=== PATIENT | male | born 1960 | race Caucasian/White ===

== ENCOUNTER 2021-02-27 16:46 | Emergency (ER) | payer BC ==
--- NOTE | 2021-02-27 19:16 | RAD REPORT ---
EXAM DESCRIPTION: US - Extremity Venous Uni Ltd - 02/27/2021 6:38 pm CLINICAL HISTORY: PAIN COMPARISON: None. TECHNIQUE: Real-time sonographic evaluation of the left lower extremity deep venous system was perfo rmed. FINDINGS: Normal compressibility, flow augmentation, phasic flow and spontaneous flow are identified in the left lower extremity common femoral, superficial femoral, popliteal and posterior tibial vein s. No intraluminal filling defects seen. Left leg arterial findings are separately detailed. IMPRESSION: No DVT in the left lower extremity.
--- NOTE | 2021-02-27 20:27 | RAD REPORT ---
EXAM DESCRIPTION: US - Lower Extremity Artery Uni Ltd - 02/27/2021 7:13 pm CLINICAL HISTORY: PAIN COMPARISON: No comparisons TECHNIQUE: Doppler evaluation of the left leg arterial tree performed. Waveforms and velocity values were obtained along with visual inspection. FINDINGS: Triphasic waveform pattern seen in the left common femoral artery transition to a biphasic waveform in the superficial femoral artery. Long segment of the midportion femoral artery shows echo genic material within the lumen with no identifiable blood flow. Proximal to the knee the distal-most femoralartery shows re-establishment of flow. This is typical re- cannulization at the adductor amie l. Popliteal, posterior tibial and dorsalis pedis arteries show monophasic waveform pattern. 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 Normal left common femoral artery triphasic waveform pattern seen. Popliteal, posterior tibial and do rsalis pedis arteries are patent but monophasic and waveform pattern.
--- NOTE | 2021-02-27 20:39 | EDPHYS ---
Physician Documentation [facility] Name: Casper Elena Age: 61 yrs Sex: Male : 1960 Arrival Date: 02/27/2021 Time: 16:48 Bed 11 Private MD: ED Physician Horacio Castaneda HPI: 02/27 20:33 This 61 yrs old Male presents to ER via Wheelchair with complaints of Leg Pain. jr8 20:33 This is a 61-year-old male patient that presented to the emergency room with insidious jr8 onset left medial thigh pain. Patient stated that it is worse with ambulation and feels that it is achy in nature. Patient had been talking to his family member who is a nurse practitioner in [place] and stated that he should get evaluated for a clot. Patient came in for further evaluation at that time. Patient denies any other symptoms at this time.. Historical: - Allergies: 17:33 Codeine; iw - PMHx: 17:33 Myocardial infarction; cva; iw - PSHx: 17:33 heart stent; iw - Immunization history:: Client reports receiving the 2nd dose of the Covid vaccine. - Social history:: Smoking status: Patient reports the use of cigarette tobacco products, smokes one pack cigarettes per day. ROS: 20:33 Eyes: Negative for injury, pain, redness, and discharge, ENT: Negative for injury, jr8 pain, and discharge, Neck: Negative for injury, pain, and swelling, Cardiovascular: Negative for chest pain, palpitations, and edema, Respiratory: Negative for shortness of breath, cough, wheezing, and pleuritic chest pain, Abdomen/GI: Negative for abdominal pain, nausea, vomiting, diarrhea, and constipation, Back: Negative for injury and pain, Skin: Negative for injury, rash, and discoloration, Neuro: Negative for headache, weakness, numbness, tingling, and seizure. 20:33 MS/extremity: Positive for pain, of the left leg. Exam: 20:33 Constitutional: This is a well developed, well nourished patient who is awake, alert, jr8 and in no acute distress. Neck: Trachea midline, no thyromegaly or masses palpated, and no cervical lymphadenopathy. Supple, full range of motion without nuchal rigidity, or vertebral point tenderness. No Meningismus. Cardiovascular: Regular rate and rhythm with a normal S1 and S2. No gallops, murmurs, or rubs. Normal PMI, no JVD. No pulse deficits. Respiratory: Lungs have equal breath sounds bilaterally, clear to auscultation and percussion. No rales, rhonchi or wheezes noted. No increased work of breathing, no retractions or nasal flaring. Abdomen/GI: Soft, non-tender, with normal bowel sounds. No distension or tympany. No guarding or rebound. No evidence of tenderness throughout. Skin: Warm, dry with normal turgor. Normal color with no rashes, no lesions, and no evidence of cellulitis. Neuro: Awake and alert, GCS 15, oriented to person, place, time, and situation. Cranial nerves II-XII grossly intact. Motor strength 5/5 in all extremities. Sensory grossly intact. Cerebellar exam normal. Normal gait. 20:33 Musculoskeletal/extremity: ROM: intact in all extremities, Pulses: noted to be 1+ in the left dorsalis pedis artery, Perfusion: the patient is pink, warm, Perfusion: the extremity is pink, warm, Calf tenderness, is absent, Sensation intact. Vital Signs: 17:32 BP 169 / 98; Pulse 76; Resp 16; Temp 97.5; Pulse Ox 97% on R/A; Weight 81.65 kg; Height iw 5 ft. 10 in. (177.80 cm); Pain 7/10; 20:55 BP 173 / 95; Pulse 71; Resp 16 S; Temp 97.9(O); Pulse Ox 97% on R/A; bb 17:32 Body Mass Index 25.83 (81.65 kg, 177.80 cm) iw MDM: 19:34 Patient medically screened. jr8 20:33 Data reviewed: vital signs, nurses notes, radiologic studies, ultrasound. Data jr8 interpreted: Pulse oximetry: on room air is 97 %. Interpretation: normal. Counseling: I had a detailed discussion with the patient and/or guardian regarding: the historical points, exam findings, and any diagnostic results supporting the discharge/admit diagnosis, radiology results, the need for outpatient follow up, a raise driller, to return to the emergency department if symptoms worsen or persist or if there are any questions or concerns that arise at home. ED course: Discussed with patient that he has atherosclerotic changes to his left femoral artery consistent to where his pain is. Patient does have collateral flow with monophasic flow down to the pedal region. Discussed with him that he needs to follow-up with cardiology has this needs to be further explored much sooner than later as this could potentially end open and occlusive emergent process. Patient understands well follow-up with cardiology in the next 1 to 2 days. Patient knows to come back if you are to worsen at any point time. Signs and symptoms of acute arterial occlusion given to patient as well to watch for.. 02/27 17:44 Order name: Extremity Venous Unilateral Ltd; Complete Time: 19:34 iw 02/27 18:42 Order name: LE Artery Uni Ltd; Complete Time: 20:31 thuy Administered Medications: No medications were administered Disposition: 02/28 04:40 Co-signature as Attending Physician, Horacio Castaneda MD I agree with the assessment and [place] healthcare plan of care. Disposition Summary: 02/27/21 20:39 Discharge Ordered Location: Home jr8 Problem: new jr8 Symptoms: have improved jr8 Condition: Stable jr8 Diagnosis - Atherosclerosis of [place] arteries of extremities with intermittent claudication, jr8 left leg Followup: jr8 - With: Brandon Perry MD - When: 1 - 2 days - Reason: Recheck today's complaints, Continuance of care, Re-evaluation by your physician Discharge Instructions: - Discharge Summary Sheet jr8 - Intermittent Claudication jr8 - Peripheral Vascular Disease jr8 - Atherosclerosis jr8 Forms: - Medication Reconciliation Form jr8 - Thank You Letter jr8 - Antibiotic Education jr8 - Prescription Opioid Use jr8 Signatures: Dispatcher [employer] EDHoracio Guerrero MD MD cha Williams, Irene, RN RN iw Elier Miramontes PA PA jr8 Corrections: (The following items were deleted from the chart) 02/27 19:21 18:41 Lower Extremity Artery Uni Ltd ordered. EDWA DEMI
--- NOTE | 2021-02-27 20:39 | ER ---
Nurse's Notes [facility] Name: Casper Elena Age: 61 yrs Sex: Male : 1960 Arrival Date: 02/27/2021 Time: 16:48 Bed 11 Private MD: Diagnosis: Atherosclerosis of [place] arteries of extremities with intermittent claudication, left leg Presentation: 02/27 17:32 Chief complaint: Patient states: pain to left thigh and inside left thigh started iw yesterday. Coronavirus screen: At this time, the client does not indicate any symptoms associated with coronavirus-19. Coronavirus screen:. Ebola Screen: Patient negative for fever greater than or equal to 101.5 degrees Fahrenheit, and additional compatible Ebola Virus Disease symptoms Patient denies exposure to infectious person. Patient denies travel to an Ebola-affected area in the 21 days before illness onset. No symptoms or risks identified at this time. Initial Sepsis Screen: Does the patient meet any 2 criteria? No. Patient's initial sepsis screen is negative. Does the patient have a suspected source of infection? No. Patient's initial sepsis screen is negative. Risk Assessment: Do you want to hurt yourself or someone else? Patient reports no desire to harm self or others. Onset of symptoms was February 27, 2021. 17:32 Method Of Arrival: Wheelchair iw 17:32 Acuity: ANDREW 4 iw Historical: - Allergies: 17:33 Codeine; iw - PMHx: 17:33 Myocardial infarction; cva; iw - PSHx: 17:33 heart stent; iw - Immunization history:: Client reports receiving the 2nd dose of the Covid vaccine. - Social history:: Smoking status: Patient reports the use of cigarette tobacco products, smokes one pack cigarettes per day. Screenin:54 Abuse screen: Denies threats or abuse. Nutritional screening: No deficits noted. bb Tuberculosis screening: No symptoms or risk factors identified. Fall Risk None identified. Assessment: 20:54 Reassessment: Patient is alert, oriented x 3, equal unlabored respirations, skin bb warm/dry/pink. pt seen by this RN at discharge pt verbalized understanding of and agrees to plan of care discharge instructions given pt ambulated with steady gait to exit. Vital Signs: 17:32 BP 169 / 98; Pulse 76; Resp 16; Temp 97.5; Pulse Ox 97% on R/A; Weight 81.65 kg; Height iw 5 ft. 10 in. (177.80 cm); Pain 7/10; 20:55 BP 173 / 95; Pulse 71; Resp 16 S; Temp 97.9(O); Pulse Ox 97% on R/A; bb 17:32 Body Mass Index 25.83 (81.65 kg, 177.80 cm) ED Course: 16:48 Patient arrived in ED. ds1 17:33 Triage completed. iw 17:34 Arm band placed on. iw 18:38 US Extremity Venous Unilateral Ltd In Process Unspecified. EDMS 18:42 Horacio Castaneda MD is Attending Physician. [facility] 19:13 US LE Artery Uni Ltd In Process Unspecified. EDMS 19:34 Elier Miramontes PA is PHCP. jr8 20:38 Brandon Perry MD is Referral Physician. jr8 20:54 Patient has correct armband on for positive identification. bb 20:54 No provider procedures requiring assistance completed. Patient did not have IV access bb during this emergency room visit. Administered Medications: No medications were administered Outcome: 20:39 Discharge ordered by . jr8 20:54 Discharged to home ambulatory. bb 20:54 Condition: stable 20:54 Discharge instructions given to patient, Instructed on discharge instructions, follow up and referral plans. Demonstrated understanding of instructions, follow-up care. 20:56 Patient left the ED. bb Signatures: Dispatcher [employer] EDHoracio Guerrero MD MD cha Sanford, Demi ds1 Teresa Mason RN RN bb Williams, Irene, RN RN Elier Miramontes PA PA jr8
[2021-02-27 21:01] VITALS: O2SAT 97
[2021-02-27 21:02] VITALS: BP 173/95; TEMP 97.9
== END 2021-02-27 20:56 | disposition home or self-care (01) ==
LOC: ER 16:46
DX: I70.212 Atherosclerosis of native arteries of extremities with intermittent claudication, left leg (principal); Z88.6 Allergy status to analgesic agent; F17.210 Nicotine dependence, cigarettes, uncomplicated
CPT/HCPCS: 93926; 93971; 99283

== ENCOUNTER 2021-03-09 08:26 | Day surgery (SDC) | payer BC ==
--- NOTE | 2021-03-05 16:19 | RAD REPORT ---
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 Lungs: No evidence of edema or pneumonia. Pleural: No significant pleural effusions or pneumothorax. Cardiac: The heart size is within normal limits. Bones: No acute fractures. Other: IMPRESSION: No acute cardiopulmonary disease.
[2021-03-05 17:16] LABS: Absolute Lymphocytes (CBC) 2.7 K/uL (0.7-4.9); Hematocrit 45.4 % (39.6-49.0); Lymphocytes % 29.4 % (15.3-44.8); MPV 8.5 fL (7.6-11.3); RBC Red Blood Cell Count 4.98 M/uL (4.33-5.43)
[2021-03-05 17:21] LABS: Protime INR 0.85
[2021-03-05 17:28] LABS: BUN Blood Urea Nitrogen 23 mg/dL (7-18); Bicarbonate 25 mmol/L (21-32); Glucose Level 103 mg/dL (74-106); Potassium 3.8 mmol/L (3.5-5.1); Sodium Level 140 mmol/L (136-145)
[2021-03-09] MEDS ORDERED: NA CHLORIDE 0.9% 500 ML ONE (08:35)
[2021-03-09] MEDS ORDERED: LIDOCAINE 1% 20 ML MDV ONE ×2 (09:17→10:35)
[2021-03-09] MEDS ORDERED: FENTANYL CITR 100 MCG/2 ML ONE (09:18)
[2021-03-09] MEDS ORDERED: HEPARIN 5000 UNIT/ML 1 ML VIAL ONE (09:18)
[2021-03-09] MEDS ORDERED: HEPA 1000U/500MLS 1,000 UNIT/500 ML BAG IV ONE ×2 (09:18→09:40)
[2021-03-09] MEDS ORDERED: MIDAZOLAM HCL 2 MG/2 ML INJ ONE ×3 (09:18→09:56)
[2021-03-09] MEDS ORDERED: ATROPINE SULF 1 MG/10 ML SYR IV ONE (09:19)
[2021-03-09 09:25] VITALS: TEMP 97
[2021-03-09] MEDS ORDERED: FLUMAZENIL 0.1 MG/ML (5 mL VIAL) IV ONE (09:57)
[2021-03-09 12:03] VITALS: BP 143/98; O2SAT 95
--- NOTE | 2021-03-09 12:14 | OP ---
Date of Procedure: 03/09/2021 Surgeon: Brandon Perry MD Piece Goods Packer: Hanna Aguila. Procedure: Abdominal angiogram with runoff. Indication: Peripheral arterial disease. Procedure In Detail: Mr. Elena is 61 with classic claudication symptoms, abnormal arterial Doppler, brought to the clinical laboratory medical director today as an outpatient, prepped and draped in routine sterile fashion. He w as given Versed and fentanyl for sedation. A 6-Yemeni sheath introduced in the right common femoral artery successfully using the Seldinger technique and 10 cc of Xylocaine. A pigtail catheter was adv anced above the renals. Abdominal angiogram with runoff was done. He had a normal renals, normal ao rta, normal iliacs, external and common. He had diffuse disease in the internal iliacs bilaterally. He had a completely occluded SFA on the left side from the ostium. It reconstituted above the knee. The right SFA was normal. There was diffuse disease [id number] at all 3 vessels bilaterally. There were no complications. Blood loss was 5 mL. The patient tolerated the procedure well. Angio- Seal was used to close the case. Total conscious sedation was 30 minutes. Impression: Severe peripheral arterial disease. I would refer him to Dr. Drew in [place] for possible femoral-popliteal surgery on the left versus p ossible intervention. I will give him a CD for himself and I will send a CD to Dr. Drew. He will remain in the hospital for 2 hours of bedrest after the procedure and he will go home after that. I will make an arrangement for followup. DAGO/ANTOINETTE Voice ID: [id number] Report ID: [id number]
== END 2021-03-09 12:08 | disposition home or self-care (01) ==
LOC: CCL 08:26
PROC: B40DYZZ Plain Radiography of Aorta and Bilateral Lower Extremity Arteries using Other Contrast (ICD-10-PCS; principal; 2021-03-09)
DX: I70.212 Atherosclerosis of native arteries of extremities with intermittent claudication, left leg (principal); I70.92 Chronic total occlusion of artery of the extremities; I25.10 Atherosclerotic heart disease of native coronary artery without angina pectoris; I10 Essential (primary) hypertension; E78.2 Mixed hyperlipidemia; F17.210 Nicotine dependence, cigarettes, uncomplicated; Z88.6 Allergy status to analgesic agent; Z20.822 Contact with and (suspected) exposure to COVID-19; Z82.49 Family history of ischemic heart disease and other diseases of the circulatory system
CPT/HCPCS: 85025; 80048; 36415; 85610; 85730; 71046; 36200; 75630; U0003; J2250 ×3; J3010; J7040; J1644 ×2

== ENCOUNTER 2022-07-30 07:14 | Emergency (ER) | payer BC ==
--- OUTSIDE RECORDS SUMMARY | 2022-07-30 07:19 | XMS REPORT | Continuity of Care Document ---
:1960 Author Organization [facility] t Address [address] [place] [address] Care Team Providers Name Role Phone AKIN PELAYO Attending Clinician Unavailable AKIN PELAYO Attending Clinician Unavailable Akin Pelayo MD Attending Clinician Irving RN, Justus Mckay Attending Clinician Unavailable AKIN PELAYO Admitting Clinician Unavailable Payers Payer Name Policy Type Policy Number Effective Date Expiration Date S ource PPO/EPO - BCBS [id number] CVCP-BCBS [id number] BCBS PPO POS EPO [id number] 2020 00:00:00 CHOICE Problems Condition Condition Condition Status Onset Resolution Last Treating Co mments Source Name Details Category Date Date Treatment Clinician Date PAD PAD Disease Active [facility] (periphera (periphera 03-26 Co llege l artery l artery 00:00: of disease) disease) 00 Medici n e Carotid Carotid Disease Active [facility] stenosis, stenosis, 03-26 Ebonie ege asymptomat asymptomat 00:00: of ic, ic, 00 Medicin bilateral bilateral e Allergies, Adverse Reactions, Alerts Allergy Allergy Status Severity Reaction(s) Onset Inactive Treating Comm ents Source Name Type Date Date Clinician Codeine Propensi Active [facility] ty to 03-24 College adverse 00:00: of reaction 00 Medicin s to e drug Codeine Drug Active [facility] CODEINE Allergy Active High Hives [facility] Social History Social Habit Start Date Stop Date Quantity Comments Source Exposure to Not sure [facility] Pardeep taylor SARS-CoV-2 (event) of Med icine History of tobacco Cigarette Smoker [facility] use of Medicine History SDGA [facility] Alcohol Comment Medical C enter History SDOH [facility] Alcohol Std Drinks Medica l Center History SDGA [facility] Alcohol Binge Medical [address] [facility] Alcohol intake 2021-04-13 2021-04-[address] [facility] 00:[facility] 00:[facility]:00 non-drinker Medical Cente r (finding) Tobacco use and 2021-04-09 2021-04-[address] [facility] exposure 00:00:00 00:00:00 non-user Medical Center History SDOH 2021-04-09 2021-04-[address] [facility] Alcohol Frequency 00:00:00 00:00:00 [facility] Sex Assigned At [address] [facility] kes 00:00:00 00:00:00 [facility] Smoking Status Start Date Stop Date Source Occasional tobacco smoker 2021-09-22 00:00:00 [facility] Smokes tobacco daily 2021-04-09 00:00:00 [facility] Never smoked tobacco [facility] Medications Ordered Filled Start Stop Current Ordering Indication Dosage Frequency Signature Comments Components Source Medication Medication Date Date Medication? Clinician (SIG) Name Name Aspirin 81 2021-02 Yes Take by [facility] CAPS 1-09 mouth. College 13:54: of 41 Medicin e Ibuprofen 2021-02 Yes Take by [facility] 200 MG CAPS 1-09 mouth. Pardeep taylor 13:54: of 41 Medicin e Aspirin 81 Yes Take by [facility] CAPS 7-27 mouth. College 13:31: of 51 Medicin e Ibuprofen Yes Take by [facility] 200 MG CAPS 7-27 mouth. Pardeep taylor 13:31: of 51 Medicin e Aspirin 81 Yes Take by [facility] CAPS 3-02 mouth. College 14:22: of 17 Medicin e Ibuprofen Yes Take by [facility] 200 MG CAPS 3-02 mouth. Pardeep taylor 14:22: of 17 Medicin e ibuprofen 2021-0 Yes [facility] 2[facility]11 [facility]. [facility] 13:[facility]: [address] aspirin 2-0 Yes Take [facility] 2-11 [facility]. [facility] 81 mg Cap 13:53: [address] ibuprofen 2021-0 Yes [facility] by [facility] Cap 2-11 mouth. [facility] 13:53: [address] aspirin 2021-0 Yes Take by [facility] 2-11 mouth. [facility] 81 mg Cap 13:53: [address] ibuprofen 2021-0 Yes Take by [facility] 200 mg Cap 2-11 mouth. [facility] 13:53: [address] aspirin 2021-0 Yes Take by [facility] 2-11 mouth. [facility] 81 mg Cap 13:53: [address] ibuprofen 2021-0 Yes [facility] by [facility] 200 mg Cap 2-11 mouth. [facility] 13:53: [address] aspirin 2021-0 Yes Take by [facility] 2-11 mouth. [facility] 81 mg Cap 13:53: [address] ibuprofen 2021-0 Yes Take by [facility] 200 mg Cap 2-11 mouth. [facility] 13:53: [address] aspirin 2-0 Yes Take by [facility] 2-11 mouth. [facility] 81 mg Cap 13:53: [address] ibuprofen 2021-0 Yes [facility] by [facility] 200 mg Cap 2-11 mouth. [facility] 13:53: [address] aspirin 2021-0 Yes Take by [facility] 2-11 mouth. [facility] 81 mg Cap 13:53: [address] clopidogrel 2022-0 3- No 75mg Take 75 mg [facility] (PLAVIX) 75 04-09 by mouth. Co llege MG Tablet 00:00: 05:59 of 00 :00 Medicin e clopidogrel 2022-0 2022- No 75mg Take 75 mg [facility] (PLAVIX) 75 04-09 by mouth. Co llege MG Tablet 00:00: 05:59 of 00 :00 Medicin e clopidogrel 2022-0 2022- No 75mg Take 75 mg [facility] (PLAVIX) 75 2-11 02-12 by mouth. Co llege MG Tablet 00:00: 05:59 of 00 :00 Medicin e clopidogreL 2022- No 75mg QD Take [address] [facility] (PLAVIX) 75 2-11 02-11 tablet (75 [facility] mg tablet 00:00: 23:59 mg total) Me dical 00 :00 by mouth Center daily. clopidogreL 2022- No 75mg QD Take [address] [facility] ([facility]AVIX) 75 2-11 02-11 tablet (75 [facility] mg tablet 00:00: 23:59 mg total) Me dical 00 :00 by mouth Center daily. clopidogreL 2022- No 75mg QD Take [address] [facility] (PLAVIX) 75 2-11 -11 tablet (75 [facility] mg tablet 00:00: 23:59 mg total) Me dical 00 :00 by mouth Center daily. clopidogreL 2022- No 75mg QD Take [address] [facility] ([facility]AVIX) 75 2-11 -11 tablet (75 [facility] mg tablet 00:00: 23:59 mg total) Me dical 00 :00 by mouth Center daily. clopidogreL 2022- No 75mg QD Take [address] [facility] (PLAVIX) 75 2-11 -11 tablet (75 [facility] mg tablet 00:00: 23:59 mg total) Me dical 00 :00 by mouth Center daily. clopidogreL 2022- No 75mg QD Take [address] [facility] (PLAVIX) 75 2-11 02-11 tablet (75 [facility] mg tablet 00:00: 23:59 mg total) Me dical 00 :00 by mouth Center daily. Aspirin 81 Yes Take by [facility] CAPS 03-24 mouth. College 15:03: Medicin e Ibuprofen Yes Take by [facility] ([facility]) 200 03-24 mouth. Colleg e MG CAPS 15:03: Medicin e Vital Signs Vital Name Observation Time Observation Value Comments Source Heart rate 2022-01-05 19:53:00 84 /min [facility] Respiratory rate 2022-01-05 19:53:00 16 /min [facility] Body height 2022-01-05 19:53:00 177.8 cm [facility] C [facility] Body weight 2022-01-05 19:53:00 79.379 kg [facility] BMI 2022-01-05 19:53:00 25.11 kg/m2 [facility] Systolic blood 2022-01-05 19:53:00 136 mm[Hg] [facility] pressure Medicine Diastolic blood 2022-01-05 19:53:00 71 mm[Hg] [facility] pressure Medicine Systolic blood 2021-09-22 18:31:00 141 mm[Hg] [facility] pressure Medicine Diastolic blood 2021-09-22 18:31:00 82 mm[Hg] [facility] pressure Medicine Heart rate 2021-09-22 18:31:00 62 /min [facility] Body height 2021-09-22 18:31:00 177.8 cm [facility] Body weight 2021-09-22 18:31:00 77.384 kg [facility] BMI 2021-09-22 18:31:00 24.48 kg/m2 [facility] Systolic blood 2021-04-28 20:24:00 146 mm[Hg] [facility] pressure Medicine Diastolic blood 2021-04-28 20:24:00 93 mm[Hg] [facility] pressure Medicine Heart rate 2021-04-28 20:24:00 66 /min [facility] WEIGHT 2021-04-09 07:21:00 81.92 kg HEIGHT 2021-04-09 07:21:00 177.8 cm WEIGHT 2021-04-09 07:21:00 81.92 kg HEIGHT 2021-04-09 07:21:00 177.8 cm WEIGHT 2021-04-06 11:49:00 83.008 kg HEIGHT 2021-04-06 11:49:00 177.8 cm WEIGHT 2021-04-06 11:49:00 83.008 kg HEIGHT 2021-04-06 11:49:00 177.8 cm Systolic blood 2021-03-24 21:02:00 167 mm[Hg] [facility] pressure Medicine Diastolic blood 2021-03-24 21:02:00 95 mm[Hg] [facility] Medicine Heart rate 2021-03-24 21:02:00 72 /min [facility] Body height 2021-03-24 21:02:00 177.8 cm [facility] Body weight 2021-03-24 21:02:00 81.647 kg [facility] BMI 2021-03-24 21:02:00 25.83 kg/m2 [facility] Systolic blood 2021-04-09 13:00:00 135 mm[Hg] [facility] Diastolic blood 2021-04-09 13:00:00 78 mm[Hg] [facility] Heart rate 2021-04-09 13:00:00 80 /min [facility] Respiratory rate 2021-04-09 13:00:00 16 /min [facility] Oxygen saturation in 2021-04-09 12:14:00 97 /min [facility] Arterial blood by Medical Ce nter Pulse oximetry Body temperature 2021-04-09 07:21:00 35.61 Ambar [facility] Body height 2021-04-09 07:21:00 177.8 cm [facility] Body weight 2021-04-09 07:21:00 81.92 kg [facility] BMI 2021-04-09 07:21:00 25.91 kg/m2 [facility] Procedures Procedure Date / Time Performed Performing Clinician Sour e VASCULAR OBL PROCEDURE 2021-12-21 08:00:00 [facility] CBC W/PLT COUNT & AUTO 2021-04-09 11:52:00 Brandon Mcintyre [facility] CBC W/PLT COUNT & AUTO 2021-04-09 11:52:00 Brandon Mcintyre [facility] PERIPHERAL ANGIOS / 2021-04-09 08:22:00 Akin Pelayo [facility] AORTOGRAM [facility] ECG 12-LEAD 2021-04-09 08:19:51 Akin Pelayo [facility] ECG 12-LEAD 2021-04-09 08:19:51 Unknown, [facility] ABORH, MANUAL 2021-04-09 08:12:00 Essie Vieira [facility] TYPE AND SCREEN, 2021-04-09 07:58:00 Rupal Mcfadden [facility] es AUTOMATED [facility] CARDIAC CATH REPORT - 2021-04-09 00:00:00 Provider, [place] [facility] SCAN Scanning [facility] CBC W/PLT COUNT & AUTO 2021-04-06 12:29:00 Akin Pelayo [facility] DIFFERENTIAL [facility] BASIC METABOLIC PANEL 2021-04-06 12:29:00 Akin Pelayo [facility] CBC W/PLT COUNT & AUTO 2021-04-06 12:29:00 [facility] SARS-COV2/RT-PCR ([facility] & 2021-04-06 12:08:00 Akin Pelayo [facility] REF LABS) [facility] Plan of Care Planned Activity Planned Date Details Comments Source Future Scheduled 2022-10-[address] [facility] Test 00:00:00 (Season Ended) [code = [facility] INFLUENZA VACCINE (Season Ended)] Future Scheduled 2022-10-[address] [facility] Test 00:00:00 (Season Ended) [code = [facility] INFLUENZA VACCINE (Season Ended)] Future Scheduled 2022-02-[address] [facility] Test 00:00:00 (12+) [code = [facility] DEPRESSION SCREENING (12+)] Future Scheduled 2022-02-[address] [facility] Test 00:00:00 (12+) [code = Medical Center DEPRESSION SCREENING (12+)] Future Scheduled 2022-02-[address] [facility] Test 00:00:00 (12+) [code = [facility] DEPRESSION SCREENING (12+)] Future Scheduled 2022-01-10 Screening for malignant [facility] Test 08:16:26 neoplasm of colon of Medicin e (procedure) [code = 938571519] Future Scheduled 2022-01-10 COVID-19 Vaccine (#1) [facility] Test 08:16:26 [code = COVID-19 of Medicine Vaccine (#1)] Future Scheduled 2022-01-10 Pneumococcal Combined [employer] Test 08:16:26 (1 - PCV) [code = of Medicin e Pneumococcal Combined (1 - PCV)] Future Scheduled 2022-01-10 TETANUS SHOT (ADULT) [facility] Test 08:16:26 [code = TETANUS SHOT of Medi cine (ADULT)] Future Scheduled 2022-01-10 BMI FOLLOW UP PLAN [facility] Test 08:16:26 [code = BMI FOLLOW UP of Med icine PLAN] Future Scheduled 2022-01-10 Hepatitis C screening [facility] Test 08:16:26 (procedure) [code = of Medic ine [id number]] Future Scheduled 2022-01-10 Human immunodeficiency B [facility] Test 08:16:26 virus screening of Medicine (procedure) [code = 564876473] Future Scheduled 2022-01-10 ZOSTER VACCINE (1 of 2) [facility] Test 08:16:26 [code = ZOSTER VACCINE of Me dicine (1 of 2)] Future Scheduled 2022-01-10 FLU VACCINE > 6 MONTHS B [facility] Test 08:16:26 [code = FLU VACCINE > 6 of M edicine MONTHS] Future Scheduled 2022-01-05 US ARTERIAL LEG LEFT 1 Occurrences [facility] College Test 14:04:06 [code = 03981] starting of Medicine 01/05/2022 until 01/05/2023 Future Scheduled 2021-10-28 INFLUENZA VACCINE (#1) [facility] Test 00:00:00 [code = INFLUENZA Medical Ce nter VACCINE (#1)] Future Scheduled 2021-10-28 INFLUENZA VACCINE (#1) [facility] Test 00:00:00 [code = INFLUENZA Medical Ce nter VACCINE (#1)] Future Scheduled 2021-10-28 INFLUENZA VACCINE (#1) [facility] Test 00:00:00 [code = INFLUENZA Medical Ce nter VACCINE (#1)] Future Scheduled 2021-10-28 INFLUENZA VACCINE (#1) [facility] Test 00:00:00 [code = INFLUENZA Medical Ce nter VACCINE (#1)] Future Scheduled 2021-09-23 Human immunodeficiency B [facility] Test 10:29:55 virus screening of Medicine (procedure) [code = 692085336] Future Scheduled 2021-09-23 ZOSTER VACCINE (1 of 2) [facility] Test 10:29:55 [code = ZOSTER VACCINE of Me dicine (1 of 2)] Future Scheduled 2021-09-23 FLU VACCINE > 6 MONTHS [employer] Test 10:29:55 [code = FLU VACCINE > 6 of M edicine MONTHS] Future Scheduled 2021-09-23 Screening for malignant [employer] Test 10:29:55 neoplasm of colon of Medicin e (procedure) [code = 381694641] Future Scheduled 2021-09-23 COVID-19 Vaccine (#1) [employer] Test 10:29:55 [code = COVID-19 of Medicine Vaccine (#1)] Future Scheduled 2021-09-23 Pneumococcal Combined [employer] Test 10:29:55 (1 - PCV) [code = of Medicin e Pneumococcal Combined (1 - PCV)] Future Scheduled 2021-09-23 TETANUS SHOT (ADULT) [facility] [employer] Test 10:29:55 [code = TETANUS SHOT of Medi cine (ADULT)] Future Scheduled 2021-09-23 Hepatitis C screening [employer] Test 10:29:55 (procedure) [code = of Medic ine 262908245] Future Scheduled 2021-09-22 US ARTERIAL LEG LEFT 1 Occurrences [employer] Test 13:43:42 [code = 46575] starting of Medicine 09/22/2021 until 09/22/2022 Future Scheduled 2021-04-29 Screening for malignant [facility] Test 10:01:14 neoplasm of colon of Medicin e (procedure) [code = 085415625] Future Scheduled 2021-04-29 COVID-19 Vaccine (1) [employer] Test 10:01:14 [code = COVID-19 of Medicine Vaccine (1)] Future Scheduled 2021-04-29 TETANUS SHOT (ADULT) [employer] Test 10:01:14 [code = TETANUS SHOT of Medi cine (ADULT)] Future Scheduled 2021-04-29 BMI FOLLOW UP PLAN [facility] [employer] Test 10:01:14 [code = BMI FOLLOW UP of Med icine PLAN] Future Scheduled 2021-04-29 Hepatitis C screening [employer] Test 10:01:14 (procedure) [code = of Medic ine 579315016] Future Scheduled 2021-04-29 Human immunodeficiency [facility] [employer] Test 10:01:14 virus screening of Medicine (procedure) [code = 347682088] Future Scheduled 2021-04-29 ZOSTER VACCINE (1 of 2) [facility] Test 10:01:14 [code = ZOSTER VACCINE of Me dicine (1 of 2)] Future Scheduled 2021-04-29 FLU VACCINE > 6 MONTHS [facility] Test 10:01:14 [code = FLU VACCINE > 6 of M edicine MONTHS] Future Scheduled 2021-04-28 US ARTERIAL LEG LEFT 1 Occurrences [employer] Test 14:41:32 [code = 98207] starting of Medicine 04/28/2021 until 04/28/2022 Future Scheduled 2021-03-26 Screening for malignant [facility] Test 13:25:12 neoplasm of colon of Medicin e (procedure) [code = 200380773] Future Scheduled 2021-03-26 COVID-19 Vaccine (1) [facility] Test 13:25:12 [code = COVID-19 of Medicine Vaccine (1)] Future Scheduled 2021-03-26 TETANUS SHOT (ADULT) [facility] Test 13:25:12 [code = TETANUS SHOT of Medi cine (ADULT)] Future Scheduled 2021-03-26 BMI FOLLOW UP PLAN [facility] Test 13:25:12 [code = BMI FOLLOW UP of Med icine PLAN] Future Scheduled 2021-03-26 Hepatitis C screening [facility] Test 13:25:12 (procedure) [code = of Medic ine 079493867] Future Scheduled 2021-03-26 Human immunodeficiency [facility] Test 13:25:12 virus screening of Medicine (procedure) [code = 491071792] Future Scheduled 2021-03-26 ZOSTER VACCINE (1 of 2) [facility] Test 13:25:12 [code = ZOSTER VACCINE of Me dicine (1 of 2)] Future Scheduled 2021-03-26 FLU VACCINE > 6 MONTHS [facility] Test 13:25:12 [code = FLU VACCINE > 6 of M edicine MONTHS] Future Scheduled 2021-03-24 US ARTERIAL LEG LEFT 1 Occurrences [employer] Test 15:22:07 [code = 88843] starting of Medicine 03/24/2021 until 03/24/2022 Future Scheduled 2021-03-24 US CAROTID [code = 1 Occurrences [facility] Test 15:22:07 92193] starting of Medicine 03/24/2021 until 03/24/2022 Future Scheduled 2021-02-[address] [facility] Test 00:00:00 (12+) [code = Medical Center DEPRESSION SCREENING (12+)] Future Scheduled 2021-02-[address] [facility] Test 00:00:00 (12+) [code = Medical Center DEPRESSION SCREENING (12+)] Future Scheduled 2021-02-[address] [facility] Test 00:00:00 (12+) [code = Medical Center DEPRESSION SCREENING (12+)] Future Scheduled 2010-01-28 SHINGLES VACCINES ([address] [facility] Test 00:00:00 2) [code = SHINGLES Medical Center VACCINES (1 of 2)] Future Scheduled 2010-01-28 SHINGLES VACCINES ([address] [facility] Test 00:00:00 2) [code = SHINGLES Medical Center VACCINES (1 of 2)] Future Scheduled 2010-01-28 SHINGLES VACCINES ([address] [facility] Test 00:00:00 2) [code = SHINGLES Medical Center VACCINES (1 of 2)] Future Scheduled 2010-01-28 SHINGLES VACCINES ([address] [facility] Test 00:00:00 2) [code = SHINGLES Medical Center VACCINES (1 of 2)] Future Scheduled 2010-01-28 SHINGLES VACCINES ([address] [facility] Test 00:00:00 2) [code = SHINGLES Medical Center VACCINES (1 of 2)] Future Scheduled 2010-01-28 SHINGLES VACCINES ([address] [facility] Test 00:00:00 2) [code = SHINGLES Medical Center VACCINES (1 of 2)] Future Scheduled 1995-01-28 Lipid panel (procedure) [facility] Test 00:00:00 [code = 44149206] Medical Ce nter Future Scheduled 1995-01-28 Lipid panel (procedure) [facility] Test 00:00:00 [code = 99829232] Medical Ce nter Future Scheduled 1995-01-28 Lipid panel (procedure) [facility] Test 00:00:00 [code = 89194681] Medical Ce nter Future Scheduled 1995-01-28 Lipid panel (procedure) [facility] Test 00:00:00 [code = 07496490] Medical Ce nter Future Scheduled 1995-01-28 Lipid panel (procedure) [facility] Test 00:00:00 [code = 40699058] Medical Ce nter Future Scheduled 1995-01-28 Lipid panel (procedure) [facility] Test 00:00:00 [code = 39070109] Medical Ce nter Future Scheduled 1979-01-28 DTAP/TDAP/TD VACCINES [facility] Test 00:00:00 (1 - Tdap) [code = Medical C enter DTAP/TDAP/TD VACCINES (1 - Tdap)] Future Scheduled 1979-01-28 DTAP/TDAP/TD VACCINES [facility] Test 00:00:00 (1 - Tdap) [code = Medical C enter DTAP/TDAP/TD VACCINES (1 - Tdap)] Future Scheduled 1979-01-28 DTAP/TDAP/TD VACCINES [facility] Test 00:00:00 (1 - Tdap) [code = Medical C enter DTAP/TDAP/TD VACCINES (1 - Tdap)] Future Scheduled 1979-01-28 DTAP/TDAP/TD VACCINES [facility] Test 00:00:00 (1 - Tdap) [code = Medical C enter DTAP/TDAP/TD VACCINES (1 - Tdap)] Future Scheduled 1979-01-28 DTAP/TDAP/TD VACCINES [facility] Test 00:00:00 (1 - Tdap) [code = Medical C enter DTAP/TDAP/TD VACCINES (1 - Tdap)] Future Scheduled 1979-01-28 DTAP/TDAP/TD VACCINES [facility] Test 00:00:00 (1 - Tdap) [code = Medical C enter DTAP/TDAP/TD VACCINES (1 - Tdap)] Future Scheduled 1978-01-28 HEPATITIS C SCREENING [facility] Test 00:00:00 [code = HEPATITIS C Medical Center SCREENING] Future Scheduled 1978-01-28 HEPATITIS C [facility]CRE[facility]ING [facility] Test 00:00:00 [code = HEPATITIS C Medical Center SCREENING] Future Scheduled 1978-01-28 HEPATITIS C SCREENING [facility] Test 00:00:00 [code = HEPATITIS C Medical Center SCREENING] Future Scheduled 1978-01-28 HEPATITIS C SCREENING [facility] Test 00:00:00 [code = HEPATITIS C Medical Center SCREENING] Future Scheduled 1978-01-28 HEPATITIS C [facility]CREENING [facility] Test 00:00:00 [code = HEPATITIS C Medical Center SCREENING] Future Scheduled 1978-01-28 HEPATITIS C [facility]CRE[facility]ING [facility] Test 00:00:00 [code = HEPATITIS C Medical Center SCREENING] Future Scheduled [address] [facility] Test 00:00:00 Counseling and Medical Cente r Screening (12+) [code = Tobacco Cessation Counseling and Screening (12+)] Future Scheduled [address] [facility] Test 00:00:00 Counseling and Medical Cente r Screening (12+) [code = Tobacco Cessation Counseling and Screening (12+)] Future Scheduled [address] [facility] Test 00:00:00 Counseling and Medical Cente r Screening (12+) [code = Tobacco Cessation Counseling and Screening (12+)] Future Scheduled 1966-01-[address] [facility] Test 00:00:00 0-64 YRS (1 - PCV) Medical C enter [code = PNEUMOCOCCAL VACCINE 0-64 YRS (1 - PCV)] Future Scheduled 1966-01-[address] [facility] Test 00:00:00 0-64 YRS (1 - PCV) Medical C enter [code = PNEUMOCOCCAL VACCINE 0-64 YRS (1 - PCV)] Future Scheduled 1966-01-[address] [facility] Test 00:00:00 0-64 YRS (1 - PCV) Medical C enter [code = PNEUMOCOCCAL VACCINE 0-64 YRS (1 - PCV)] Future Scheduled 1966-01-[address] [facility] Test 00:00:00 0-64 YRS (1 - PCV) Medical C enter [code = PNEUMOCOCCAL VACCINE 0-64 YRS (1 - PCV)] Future Scheduled 1966-01-[address] [facility] Test 00:00:00 0-64 YRS (1 - PCV) Medical C enter [code = PNEUMOCOCCAL VACCINE 0-64 YRS (1 - PCV)] Future Scheduled 1966-01-[address] [facility] Test 00:00:00 0-64 YRS (1 - PCV) Medical C enter [code = PNEUMOCOCCAL VACCINE 0-64 YRS (1 - PCV)] Future Scheduled 1960 COVID-19 VACCINE (#1) [facility] Test 00:00:00 [code = COVID-[address] VACCINE (#1)] Future Scheduled 1960 COVID-19 VACCINE (#1) [facility] Test 00:00:00 [code = COVID-[address] VACCINE (#1)] Future Scheduled 1960 COVID-19 VACCINE (#1) [facility] Test 00:00:00 [code = COVID-[address] VACCINE (#1)] Future Scheduled 1960 COVID-19 VACCINE (#1) [facility] Test 00:00:00 [code = COVID-[address] VACCINE (#1)] Future Scheduled 1960 COVID-19 VACCINE (#1) [facility] Test 00:00:00 [code = COVID-[address] VACCINE (#1)] Future Scheduled 1960 COVID-19 VACCINE (#1) [facility] Test 00:00:00 [code = COVID-[address] VACCINE (#1)] Future Scheduled 1960 Screening for malignant [facility] Test 00:00:00 neoplasm of colon Medical Ce nter (procedure) [code = 949553240] Future Scheduled 1960 Screening for malignant [facility] Test 00:00:00 neoplasm of colon Medical Ce nter (procedure) [code = 636709040] Future Scheduled 1960 Screening for malignant [facility] Test 00:00:00 neoplasm of colon Medical Ce nter (procedure) [code = 651433374] Future Scheduled 1960 Sigmoidoscopy [code = [facility] Sigmoidoscopy] [facility] Future Scheduled 1960 CT Colonography (combo) [facility] Test 00:00:00 [code = CT Colonography [facility] (combo)] Future Scheduled 1960 Screening for malignant [facility] Test 00:00:00 neoplasm of colon Medical Ce nter (procedure) [code = 884884647] Future Scheduled 1960 Screening for malignant [facility] Test 00:00:00 neoplasm of colon Medical Ce nter (procedure) [code = 055728099] Future Scheduled 1960 Screening for malignant [facility] Test 00:00:00 neoplasm of colon [facility] (procedure) [code = 316762276] Future Scheduled 1960 Screening for malignant [facility] 00:00:00 neoplasm of colon Medical Ce [facility]ter (procedure) [code = 684608055] Future Scheduled 1960 Sigmoidoscopy [facility]code = [facility]] Medical Cent[facility] Future Scheduled 1960 CT Colonography (combo) [facility] 00:00:00 [code = CT Colonography [facility] (combo)] Future Scheduled 1960 Screening for malignant [facility] 00:00:00 neoplasm of colon Medical Ce [facility]ter (procedure) [code = 626495299] Future Scheduled 1960 Screening for malignant [facility] 00:00:00 neoplasm of colon Medical Ce [facility] (procedure) [code = 548120101] Future Scheduled 1960 Screening for malignant [facility] 00:00:00 neoplasm of colon Medical Ce [facility]ter (procedure) [code = 410574452] Future Scheduled 1960 Screening for malignant [facility] 00:00:00 neoplasm of colon Medical Ce [facility]ter (procedure) [code = 407316188] Future Scheduled 1960 Sigmoidoscopy [facility]code = [facility] S[facility]oscopy] Medical Cente r Future Scheduled 1960 CT Colonography (combo) [facility] 00:00:00 [code = CT Colonography [facility] (combo)] Future Scheduled 1960 Screening for malignant [facility] 00:00:00 neoplasm of colon Medical Ce [facility]ter (procedure) [code = 127619238] Future Scheduled 1960 Screening for malignant [facility] 00:00:00 neoplasm of colon Medical Ce [facility]ter (procedure) [code = 959641697] Future Scheduled 1960 Screening for malignant [facility] 00:00:00 neoplasm of colon Medical Ce nter (procedure) [code = 253077001] Future Scheduled 1960 Screening for malignant [facility] 00:00:00 neoplasm of colon Medical Ce [facility]ter (procedure) [code = 754637350] Future Scheduled 1960 Sigmoidoscopy [code = [facility] 00:[facility] S[facility]oidoscopy] Medical Cente r Future Scheduled 1960 CT Colonography (combo) [facility] 00:00:00 [code = CT [facility] ([facility])] Future Scheduled 1960 Screening for malignant [facility] 00:00:00 neoplasm of colon Medical Ce nter (procedure) [code = 216457592] Future Scheduled 1960 Screening for malignant [facility] 00:00:00 neoplasm of colon Medical Ce nter (procedure) [code = 067800430] Future Scheduled 1960 Screening for malignant [facility] 00:00:00 neoplasm of colon Medical Ce [facility]ter (procedure) [code = 381159889] Future Scheduled 1960 Screening for malignant [facility] 00:00:00 neoplasm of colon Medical Ce nter (procedure) [code = 091081135] Future Scheduled 1960 Sigmoidoscopy [facility]code = [facility] 00:[facility] S[facility]oidoscopy] Medical Nolbertoe r Future Scheduled 1960 CT Colonography (combo) [facility] 00:00:00 [code = CT [facility] ([facility])] Future Scheduled 1960 Screening for malignant [facility] 00:00:00 neoplasm of colon Medical Ce [facility]ter (procedure) [code = 042856922] Future Scheduled 1960 CT Colonography (combo) [facility] 00:00:00 [code = CT [facility] ([facility])] Future Scheduled 1960 Screening for malignant [facility] 00:00:00 neoplasm of colon Medical Ce [facility]ter (procedure) [code = 646997192] Future Scheduled 1960 Screening for malignant [facility] 00:00:00 neoplasm of colon Medical Ce nter (procedure) [code = 142343878] Future Scheduled 1960 Screening for malignant [facility] 00:00:00 neoplasm of colon Medical Ce nter (procedure) [code = 301893311] Future Scheduled 1960 Screening for malignant [facility] 00:00:00 neoplasm of colon Medical Ce nter (procedure) [code = 831886449] Future Scheduled 1960 Sigmoidoscopy [facility]code = [facility] S[facility]oscopy] Medical Cente r Encounters Start End Encounter Admission Attending Care Care Encounter Source Date/Time Date/Time Type Type Clinicians Facility Department ID 2022-01-05 2022-01-05 Outpatient [facility] [id number] [facility] 12:33:21 15:38:55 [facility] 2022-01-05 2022-01-05 Office RICHIE PELAYO [id number] [facility] 13:52:22 14:52:27 Visit JAYER AMBULATOR 350.1.13.21 College Y 0.2.7.2.686 of [id number] [facility] kay 825 e 2021-12-21 2021-12-21 Outpatient [facility] [id number] [facility] 08:12:05 11:41:36 [facility] 2021-12-21 2021-12-21 Outpatient SABINA [facility] [id number] [facility] 07:52:04 10:11:00 [facility]AYER [employer] 2021-09-22 2021-10-14 Outpatient [facility] [id number] [facility] 10:35:11 19:34:48 [facility] 2021-09-22 2021-09-23 Office SABINA [facility] [id number] [facility] 10:42:05 20:44:23 Visit JAYER AMBULATOR 350.1.13.21 College Y 0.2.7.2.686 of [id number] [facility] kay 825 e 2021-04-28 2021-04-28 Office SABINA [facility] [id number] [facility] 12:38:00 16:07:55 Visit JAYER AMBULATOR 350.1.13.21 College Y 0.2.7.2.686 of [id number] [facility] kay 825 e 2021-04-28 2021-04-28 Outpatient [facility] [id number] [facility] 12:37:18 15:13:05 [facility] 2021-04-28 2021-04-28 Outpatient [facility] [id number] [facility] 12:37:43 14:46:20 [facility] 2021-04-09 2021-04-09 Outpatient [facility] [id number] [facility] 00:00:00 23:59:00 [facility] 2021-04-09 2021-04-09 Outpatient MELISSA PELAYO [facility] Surgery [id number] [facility] 07:10:00 13:23:00 [facility] 2021-04-09 2021-04-09 [facility] [id number] 07:10:00 13:23:00 Encounter [facility] 2021-04-09 2021-04-09 [facility] [id number] 10:06:00 12:43:00 [facility] 2021-04-09 2021-04-09 Orders [facility] [id number] 00:00:00 00:00:00 [facility] 2021-04-06 2021-04-06 Office Akin Brown [facility] [id number] 11:30:00 11:45:00 Visit [facility] 2021-04-06 2021-04-06 Outpatient [facility] [id number] [facility] 11:28:56 11:28:56 2021-03-24 2021-03-30 Office RICHIE PELAYO [id number] [facility] 14:10:08 06:52:29 Visit [facility] AMBULATOR 350.1.13.21 College Y 0.2.7.2.686 of [id number] [facility] 825 e Results Test Description Test Time Test Comments Results Result Comments Source CBC with platelet count + automated diff 2021-04-09 12:08:23 Test Item Value Reference Range Interpretation Comme nts WBC (test code = 6690-2) 11.9 See_Comment H [A utomated message] The system which generated this result transmitted ref erence range: 3.5 - 10.5 K/L. T he reference range was not u sed to interpret this result as normal/abnormal. RBC (test code = 789-8) 4.35 See_Comment L [Au tomated message] The system which generated this result transmitted ref erence range: 4.63 - 6.08 M/ L. The reference range was not u sed to interpret this result as normal/abnormal. MCHC (test code = 786-4) 33.9 See_Comment L [A utomated message] The system which generated this result transmitted ref erence range: 32.3 - 36.5 GM/ DL. The reference range was not u sed to interpret this result as normal/abnormal. Hematocrit (test code = 39.8 % 40.1-51.0 L 4544-3) MCV (test code = 787-2) 91.5 fL 79.0-92.2 MCH (test code = 785-6) 31.0 pg 25.7-32.2 RDW (test code = 788-0) 12.1 % 11.6-14.4 Platelets (test code = 777-3) 216 See_Comment [Automated message] The system which generated this result transmitted ref erence range: 150 - 450 K/CU MM. The reference range was not u sed to interpret this result as normal/abnormal. MPV (test code = 79597-5) 10.0 fL 9.4-12.4 nRBC (test code = 413) 0 See_Comment [Aut omated message] The system which generated this result transmitted ref erence range: 0 - 0 /100 WBC. The reference range was not used to interpret this result as amy l/abnormal. % Neutros (test code = 429) 72 % % Lymphs (test code = 430) 18 % % Monos (test code = 431) 8 % % Eos (test code = 432) 2 % % Baso (test code = 437) 1 % # Neutros (test code = 670) 8.49 See_Comment H [Automated message] The system which generated this result transmitted ref erence range: 1.78 - 5.38 K/ L. The reference range was not u sed to interpret this result as normal/abnormal. # Lymphs (test code = 414) 2.14 See_Comment [Automated message] The system which generated this result transmitted ref erence range: 1.32 - 3.57 K/ L. The reference range was not u sed to interpret this result as normal/abnormal. # Monos (test code = 415) 0.90 See_Comment H [ Automated message] The system which generated this result transmitted ref erence range: 0.30 - 0.82 K/ L. The reference range was not u sed to interpret this result as normal/abnormal. # Eos (test code = 416) 0.19 See_Comment [Au tomated message] The system which generated this result transmitted ref erence range: 0.04 - 0.54 K/ L. The reference range was not u sed to interpret this result as normal/abnormal. # Baso (test code = 417) 0.08 See_Comment [A utomated message] The system which generated this result transmitted ref erence range: 0.01 - 0.08 K/ L. The reference range was not u sed to interpret this result as normal/abnormal. Immature Granulocytes-Relative 1 % 0-1 (test code = 2801) Lab Interpretation (test code Abnormal = 03391-9) [facility] with platelet count + automated [id number] 12:08:23 Test Item Value Reference Range Interpretation Comments WBC (test code = 6690-2) 11.9 See_Comment H [A utomated message] The system [employer] generated this result transmitted ref erence range: 3.5 - 10 .5 K/L. The refe rence range was not u sed to interpret this result as normal/abnor mal. RBC (test code = 789-8) 4.35 See_Comment L [Au tomated message] The system [employer] generated this result transmitted ref erence range: 4.63 - 6 .08 M/L. The refe rence range was not u sed to interpret this result as normal/abnor mal. MCHC (test code = 786-4) 33.9 See_Comment L [A utomated message] The system [employer] generated this result transmitted ref erence range: 32.3 - 3 6.5 GM/DL. The refe rence range was not u sed to interpret this result as normal/abnor mal. Hematocrit (test code = 39.8 % 40.1-51.0 L 4544-3) MCV (test code = 787-2) 91.5 fL 79.0-92.2 MCH (test code = 785-6) 31.0 pg 25.7-32.2 RDW (test code = 788-0) 12.1 % 11.6-14.4 Platelets (test code = 216 See_Comment [Aut omated message] 777-3) The system [employer] generated this result transmitted ref erence range: 150 - 45 0 K/CU MM. The referen ce range was not u sed to interpret this result as normal/abnor mal. MPV (test code = 10.0 fL 9.4-12.4 85935-2) nRBC (test code = 413) 0 See_Comment [Aut omated message] The system [employer] generated this result transmitted ref erence range: 0 - 0 /1 00 WBC. The refere nce range was not u sed to interpret this result as normal/abnor mal. % Neutros (test code = 72 % 429) % Lymphs (test code = 18 % 430) % Monos (test code = 8 % 431) % Eos (test code = 432) 2 % % Baso (test code = 437) 1 % # Neutros (test code = 8.49 See_Comment H [Aut omated message] 670) The system [employer] generated this result transmitted ref erence range: 1.78 - 5 .38 K/L. The refe rence range was not u sed to interpret this result as normal/abnor mal. # Lymphs (test code = 2.14 See_Comment [Auto mated message] 414) The system [employer] generated this result transmitted ref erence range: 1.32 - 3 .57 K/L. The refe rence range was not u sed to interpret this result as normal/abnor mal. # Monos (test code = 0.90 See_Comment H [Autom ated message] 415) The system [employer] generated this result transmitted ref erence range: 0.30 - 0 .82 K/L. The refe rence range was not u sed to interpret this result as normal/abnor mal. # Eos (test code = 416) 0.19 See_Comment [Au tomated message] The system [employer] generated this result transmitted ref erence range: 0.04 - 0 .54 K/L. The refe rence range was not u sed to interpret this result as normal/abnor mal. # Baso (test code = 417) 0.08 See_Comment [A utomated message] The system [employer] generated this result transmitted ref erence range: 0.01 - 0 .08 K/L. The refe rence range was not u sed to interpret this result as normal/abnor mal. Immature 1 % 0-1 Granulocytes-Relative (test code = 2801) Lab Interpretation (test Abnormal code = 39639-3) [facility] with platelet count + automated [id number] 12:08:23 Test Item Value Reference Range Interpretation Comments WBC (test code = 6690-2) 11.9 See_Comment H [A utomated message] The system [employer] generated this result transmitted ref erence range: 3.5 - 10 .5 K/L. The refe rence range was not u sed to interpret this result as normal/abnor mal. RBC (test code = 789-8) 4.35 See_Comment L [Au tomated message] The system [employer] generated this result transmitted ref erence range: 4.63 - 6 .08 M/L. The refe rence range was not u sed to interpret this result as normal/abnor mal. MCHC (test code = 786-4) 33.9 See_Comment L [A utomated message] The system [employer] generated this result transmitted ref erence range: 32.3 - 3 6.5 GM/DL. The refe rence range was not u sed to interpret this result as normal/abnor mal. Hematocrit (test code = 39.8 % 40.1-51.0 L 4544-3) MCV (test code = 787-2) 91.5 fL 79.0-92.2 MCH (test code = 785-6) 31.0 pg 25.7-32.2 RDW (test code = 788-0) 12.1 % 11.6-14.4 Platelets (test code = 216 See_Comment [Aut omated message] 497-3) The system [employer] generated this result transmitted ref erence range: 150 - 45 0 K/CU MM. The referen ce range was not u sed to interpret this result as normal/abnor mal. MPV (test code = 10.0 fL 9.4-12.4 93340-6) nRBC (test code = 413) 0 See_Comment [Aut omated message] The system [employer] generated this result transmitted ref erence range: 0 - 0 /1 00 WBC. The refere nce range was not u sed to interpret this result as normal/abnor mal. % Neutros (test code = 72 % 429) % Lymphs (test code = 18 % 430) % Monos (test code = 8 % 431) % Eos (test code = 432) 2 % % Baso (test code = 437) 1 % # Neutros (test code = 8.49 See_Comment H [Aut omated message] 670) The system [employer] generated this result transmitted ref erence range: 1.78 - 5 .38 K/L. The refe rence range was not u sed to interpret this result as normal/abnor mal. # Lymphs (test code = 2.14 See_Comment [Auto mated message] 414) The system [employer] generated this result transmitted ref erence range: 1.32 - 3 .57 K/L. The refe rence range was not u sed to interpret this result as normal/abnor mal. # Monos (test code = 0.90 See_Comment H [Autom ated message] 415) The system [employer] generated this result transmitted ref erence range: 0.30 - 0 .82 K/L. The refe rence range was not u sed to interpret this result as normal/abnor mal. # Eos (test code = 416) 0.19 See_Comment [Au tomated message] The system [employer] generated this result transmitted ref erence range: 0.04 - 0 .54 K/L. The refe rence range was not u sed to interpret this result as normal/abnor mal. # Baso (test code = 417) 0.08 See_Comment [A utomated message] The system [employer] generated this result transmitted ref erence range: 0.01 - 0 .08 K/L. The refe rence range was not u sed to interpret this result as normal/abnor mal. Immature 1 % 0-1 Granulocytes-Relative (test code = 2801) Lab Interpretation (test Abnormal code = 95907-7) [facility] with platelet count + automated [id number] 12:08:23 Test Item Value Reference Range Interpretation Comments WBC (test code = 6690-2) 11.9 See_Comment H [A utomated message] The system [employer] generated this result transmitted ref erence range: 3.5 - 10 .5 K/L. The refe rence range was not u sed to interpret this result as normal/abnor mal. RBC (test code = 789-8) 4.35 See_Comment L [Au tomated message] The system [employer] generated this result transmitted ref erence range: 4.63 - 6 .08 M/L. The refe rence range was not u sed to interpret this result as normal/abnor mal. MCHC (test code = 786-4) 33.9 See_Comment L [A utomated message] The system [employer] generated this result transmitted ref erence range: 32.3 - 3 6.5 GM/DL. The refe rence range was not u sed to interpret this result as normal/abnor mal. Hematocrit (test code = 39.8 % 40.1-51.0 L 4544-3) MCV (test code = 787-2) 91.5 fL 79.0-92.2 MCH (test code = 785-6) 31.0 pg 25.7-32.2 RDW (test code = 788-0) 12.1 % 11.6-14.4 Platelets (test code = 216 See_Comment [Aut omated message] 777-3) The system [employer] generated this result transmitted ref erence range: 150 - 45 0 K/CU MM. The referen ce range was not u sed to interpret this result as normal/abnor mal. MPV (test code = 10.0 fL 9.4-12.4 95487-6) nRBC (test code = 413) 0 See_Comment [Aut omated message] The system [employer] generated this result transmitted ref erence range: 0 - 0 /1 00 WBC. The refere nce range was not u sed to interpret this result as normal/abnor mal. % Neutros (test code = 72 % 429) % Lymphs (test code = 18 % 430) % Monos (test code = 8 % 431) % Eos (test code = 432) 2 % % Baso (test code = 437) 1 % # Neutros (test code = 8.49 See_Comment H [Aut omated message] 670) The system [employer] generated this result transmitted ref erence range: 1.78 - 5 .38 K/L. The refe rence range was not u sed to interpret this result as normal/abnor mal. # Lymphs (test code = 2.14 See_Comment [Auto mated message] 414) The system [employer] generated this result transmitted ref erence range: 1.32 - 3 .57 K/L. The refe rence range was not u sed to interpret this result as normal/abnor mal. # Monos (test code = 0.90 See_Comment H [Autom ated message] 415) The system [employer] generated this result transmitted ref erence range: 0.30 - 0 .82 K/L. The refe rence range was not u sed to interpret this result as normal/abnor mal. # Eos (test code = 416) 0.19 See_Comment [Au tomated message] The system [employer] generated this result transmitted ref erence range: 0.04 - 0 .54 K/L. The refe rence range was not u sed to interpret this result as normal/abnor mal. # Baso (test code = 417) 0.08 See_Comment [A utomated message] The system [employer] generated this result transmitted ref erence range: 0.01 - 0 .08 K/L. The refe rence range was not u sed to interpret this result as normal/abnor mal. Immature 1 % 0-1 Granulocytes-Relative (test code = 2801) Lab Interpretation (test Abnormal code = 94058-4) [facility] W/PLT COUNT & AUTO [id number] 12:08:23 Test Item Value Reference Range Interpretation Comments WHITE BLOOD CELL COUNT (BEAKER) 11.9 K/ L 3.5-10.5 H (test code = 775) RED BLOOD CELL COUNT (BEAKER) 4.35 M/ L 4.63-6.08 L (test code = 761) HEMOGLOBIN (BEAKER) (test code = 13.5 GM/DL 13.7-17.5 L 410) HEMATOCRIT (BEAKER) (test code = 39.8 % 40.1-51.0 L 411) MEAN CORPUSCULAR VOLUME (BEAKER) 91.5 fL 79.0-92.2 (test code = 753) MEAN CORPUSCULAR HEMOGLOBIN 31.0 pg 25.7-32.2 (BEAKER) (test code = 751) MEAN CORPUSCULAR HEMOGLOBIN CONC 33.9 GM/DL 32.3-36.5 (BEAKER) (test code = 752) RED CELL DISTRIBUTION WIDTH 12.1 % 11.6-14.4 (BEAKER) (test code = 412) PLATELET COUNT (BEAKER) (test 216 K/CU MM 150-450 code = 756) MEAN PLATELET VOLUME (BEAKER) 10.0 fL 9.4-12.4 (test code = 754) NUCLEATED RED BLOOD CELLS 0 /100 WBC 0-0 (BEAKER) (test code = 413) NEUTROPHILS RELATIVE PERCENT 72 % (BEAKER) (test code = 429) LYMPHOCYTES RELATIVE PERCENT 18 % (BEAKER) (test code = 430) MONOCYTES RELATIVE PERCENT 8 % (BEAKER) (test code = 431) EOSINOPHILS RELATIVE PERCENT 2 % (BEAKER) (test code = 432) BASOPHILS RELATIVE PERCENT 1 % (BEAKER) (test code = 437) NEUTROPHILS ABSOLUTE COUNT 8.49 K/ L 1.78-5.38 H (BEAKER) (test code = 670) LYMPHOCYTES ABSOLUTE COUNT 2.14 K/ L 1.32-3.57 (BEAKER) (test code = 414) MONOCYTES ABSOLUTE COUNT (BEAKER) 0.90 K/ L 0.30-0.82 H (test code = 415) EOSINOPHILS ABSOLUTE COUNT 0.19 K/ L 0.04-0.54 (BEAKER) (test code = 416) BASOPHILS ABSOLUTE COUNT (BEAKER) 0.08 K/ L 0.01-0.08 (test code = 417) IMMATURE GRANULOCYTES-RELATIVE 1 % 0-1 PERCENT (BEAKER) (test code = 2801) Type and screen, [id number] 08:57:00 Test Item Value Reference Range Interpretation Comments ABO/RH AUTOMATED (BEAKER) (test AB POSITIVE code = 2260) Ab Scrn (test code = 890-4) NEGATIVE [facility] screen, [id number] 08:57:00 Test Item Value Reference Range Interpretation Comments ABO/RH AUTOMATED (BEAKER) (test AB POSITIVE code = 2260) Ab Scrn (test code = 890-4) NEGATIVE [facility] and screen, [id number] 08:57:00 Test Item Value Reference Range Interpretation Comments ABO/RH AUTOMATED (BEAKER) (test AB POSITIVE code = 2260) Ab Scrn (test code = 890-4) NEGATIVE [facility] and screen, [id number] 08:57:00 Test Item Value Reference Range Interpretation Comments ABO/RH AUTOMATED (BEAKER) (test AB POSITIVE code = 2260) Ab Scrn (test code = 890-4) NEGATIVE [facility], [id number] 08:40:00 Test Item Value Reference Range Interpretation Comments ABO Grouping (test code = 2588) AB Rh Factor (test code = 2589) POS [facility], [id number] 08:40:00 Test Item Value Reference Range Interpretation Comments ABO Grouping (test code = 2588) AB Rh Factor (test code = 2589) POS [facility], [id number] 08:40:00 Test Item Value Reference Range Interpretation Comments ABO Grouping (test code = 2588) AB Rh Factor (test code = 2589) POS [facility], [id number] 08:40:00 Test Item Value Reference Range Interpretation Comments ABO Grouping (test code = 2588) AB Rh Factor (test code = 2589) [facility])2021-04-06 21:11:35 Test Item Value Reference Range Interpretation Comments SARS-COV2/RT-PCR (test Negative Negative code = 13950-6) WENDY (test code = WENDY) Negative result for this test determines that SARS-CoV-2 RNA was not present in the specimen above the Limit of Detection (LOD). However, Negative results do not preclude SARS-CoV-2 infection and should not be used as the sole basis for treatment or patient management decisions. Negative results must be combined with clinical observations, patient history, and epidemiological information. A false negative result may occur if a specimen is improperly collected, transported, or handled. A false negative result should be considered if patient's recent exposures or clinical presentation indicate that COVID-19 (SARS-CoV-2) is likely and diagnostic tests for other causes of illness are negative. Re-testing should be considered in cases of suspected false negatives. The limit of detection for this assay is 100 copies/mL. This SARS-CoV-2 test is a real-time RT_PCR test intended for the qualitative detection of nucleic acid from SARS-CoV-2 in a nasopharyngeal swab specimen collected from individuals suspected of COVID-19 by their healthcare provider. This test has not been Food and Drug Administration (FDA) cleared or approved. This is a modified version of an approved Emergency Use Authorization (EUA) and is in the process of review by the FDA. Once authorized by the FDA, the issued EUA will be effective until the declaration that circumstances exist justifying the authorization of the emergency use of in vitro diagnostic tests for detection and/or diagnosis of COVID-19 is terminated under Section 564(b)(2) of the Act or the EUA is revoked under Section 564(g) of the Act. Testing was performed using the [employer] SARS-CoV-2 assay. Fact Sheet for Healthcare Providers:https://www.lauren shaver/sky/RT SARS-CoV-2 HCP Fact Sheet 51-699877.pdf Fact Sheet for Healthcare Patients:https://www.mo martin/sky/RT SARS-CoV-2 Patient Fact Sheet EN [id number].pdf Lab Interpretation Normal (test code = 63863-2) [facility]2021-04-06 21:11:35 Test Item Value Reference Range Interpretation Comments SARS-COV2/RT-PCR (test Negative Negative code = 53560-6) WENDY (test code = WENDY) Negative result for this test determines that SARS-CoV-2 RNA was not present in the specimen above the Limit of Detection (LOD). However, Negative results do not preclude SARS-CoV-2 infection and should not be used as the sole basis for treatment or patient management decisions. Negative results must be combined with clinical observations, patient history, and epidemiological information. A false negative result may occur if a specimen is improperly collected, transported, or handled. A false negative result should be considered if patient's recent exposures or clinical presentation indicate that COVID-19 (SARS-CoV-2) is likely and diagnostic tests for other causes of illness are negative. Re-testing should be considered in cases of suspected false negatives. The limit of detection for this assay is 100 copies/mL. This SARS-CoV-2 test is a real-time RT_PCR test intended for the qualitative detection of nucleic acid from SARS-CoV-2 in a nasopharyngeal swab specimen collected from individuals suspected of COVID-19 by their healthcare provider. This test has not been Food and Drug Administration (FDA) cleared or approved. This is a modified version of an approved Emergency Use Authorization (EUA) and is in the process of review by the FDA. Once authorized by the FDA, the issued EUA will be effective until the declaration that circumstances exist justifying the authorization of the emergency use of in vitro diagnostic tests for detection and/or diagnosis of COVID-19 is terminated under Section 564(b)(2) of the Act or the EUA is revoked under Section 564(g) of the Act. Testing was performed using the [employer] SARS-CoV-2 assay. Fact Sheet for Healthcare Providers:https://www.lauren shaver/sky/RT SARS-CoV-2 HCP Fact Sheet 51-553312.pdf Fact Sheet for Healthcare Patients:https://www.mo rowan.roque/sky/RT SARS-CoV-2 Patient Fact Sheet EN 51-509790M0.pdf Lab Interpretation Normal (test code = 07489-1) [facility]2021-04-06 21:11:35 Test Item Value Reference Range Interpretation Comments SARS-COV2/RT-PCR (test Negative Negative code = 90110-2) WENDY (test code = WENDY) Negative result for this test determines that SARS-CoV-2 RNA was not present in the specimen above the Limit of Detection (LOD). However, Negative results do not preclude SARS-CoV-2 infection and should not be used as the sole basis for treatment or patient management decisions. Negative results must be combined with clinical observations, patient history, and epidemiological information. A false negative result may occur if a specimen is improperly collected, transported, or handled. A false negative result should be considered if patient's recent exposures or clinical presentation indicate that COVID-19 (SARS-CoV-2) is likely and diagnostic tests for other causes of illness are negative. Re-testing should be considered in cases of suspected false negatives. The limit of detection for this assay is 100 copies/mL. This SARS-CoV-2 test is a real-time RT_PCR test intended for the qualitative detection of nucleic acid from SARS-CoV-2 in a nasopharyngeal swab specimen collected from individuals suspected of COVID-19 by their healthcare provider. This test has not been Food and Drug Administration (FDA) cleared or approved. This is a modified version of an approved Emergency Use Authorization (EUA) and is in the process of review by the FDA. Once authorized by the FDA, the issued EUA will be effective until the declaration that circumstances exist justifying the authorization of the emergency use of in vitro diagnostic tests for detection and/or diagnosis of COVID-19 is terminated under Section 564(b)(2) of the Act or the EUA is revoked under Section 564(g) of the Act. Testing was performed using the [employer] SARS-CoV-2 assay. Fact Sheet for Healthcare Providers:https://www.lauren shaver/sky/RT SARS-CoV-2 HCP Fact Sheet 51-167831.pdf Fact Sheet for Healthcare Patients:https://www.mo rowan.roque/sky/RT SARS-CoV-2 Patient Fact Sheet EN 51-110289W1.pdf Lab Interpretation Normal (test code = 39105-0) [facility])2021-04-06 21:11:35 Test Item Value Reference Range Interpretation Comments SARS-COV2/RT-PCR (test Negative Negative code = 21517-1) WENDY (test code = WENDY) Negative result for this test determines that SARS-CoV-2 RNA was not present in the specimen above the Limit of Detection (LOD). However, Negative results do not preclude SARS-CoV-2 infection and should not be used as the sole basis for treatment or patient management decisions. Negative results must be combined with clinical observations, patient history, and epidemiological information. A false negative result may occur if a specimen is improperly collected, transported, or handled. A false negative result should be considered if patient's recent exposures or clinical presentation indicate that COVID-19 (SARS-CoV-2) is likely and diagnostic tests for other causes of illness are negative. Re-testing should be considered in cases of suspected false negatives. The limit of detection for this assay is 100 copies/mL. This SARS-CoV-2 test is a real-time RT_PCR test intended for the qualitative detection of nucleic acid from SARS-CoV-2 in a nasopharyngeal swab specimen collected from individuals suspected of COVID-19 by their healthcare provider. This test has not been Food and Drug Administration (FDA) cleared or approved. This is a modified version of an approved Emergency Use Authorization (EUA) and is in the process of review by the FDA. Once authorized by the FDA, the issued EUA will be effective until the declaration that circumstances exist justifying the authorization of the emergency use of in vitro diagnostic tests for detection and/or diagnosis of COVID-19 is terminated under Section 564(b)(2) of the Act or the EUA is revoked under Section 564(g) of the Act. Testing was performed using the [employer] SARS-CoV-2 assay. Fact Sheet for Healthcare Providers:https://www.lauren shaver/sky/RT SARS-CoV-2 HCP Fact Sheet 51-519851.pdf Fact Sheet for Healthcare Patients:https://www.mo martin/sky/RT SARS-CoV-2 Patient Fact Sheet EN 51-558189X8.pdf Lab Interpretation Normal (test code = 97425-2) [facility])2021-04-06 21:11:35 Test Item Value Reference Range Interpretation Comments SARS-COV2/RT-PCR (test code = Negative Negative [id number]) Negative result for this test determines that SARS-CoV-2 RNA was not present in the specimen above the Limit of Detection (LOD). However, Negative results do not preclude SARS-CoV-2 infection and should not be used as the sole basis for treatment or patient management decisions. Negative results must be combined with clinical observations, patient history, and epidemiological information. A false negative result may occur if a specimen is improperly collected, transported, or handled. A false negative result should be considered if patient's recent exposures or clinical presentation indicate that COVID-19 (SARS-CoV-2) is likely and diagnostic tests for other causes of illness are negative. Re-testing should be considered in cases of suspected false negatives.The limit of detection for this assay is 100 copies/mL.This SARS-CoV-2 test is a real-time RT_PCR test intended for the qualitative detection of nucleic acid from SARS-CoV-2 in a nasopharyngeal swab specimen collected from individuals suspected of COVID-19 by their healthcare provider.This test has not been Food and Drug Administration (FDA) cleared or approved. This is a modified version of an approved Emergency Use Authorization (EUA) and is in the process of review by the FDA. Once authorized by the FDA, the issued EUA will be effective until the declaration that circumstances exist justifying the authorization of the emergency use of in vitro diagnostic tests for detection and/or diagnosis of COVID-19 is terminated under Section 564(b)(2) of the Act or the EUA is revoked under Section 564(g) of the Act.Testing was performed using [employer] SARS-CoV-2 assay.Fact Sheet for Healthcare Providers:https://www.Sporthold.roque/sky/RT SARS-CoV-2 HCP Fact Sheet 51- 142016.pdfFact Sheet for Healthcare Patients:https://www.Sporthold.roque/sky/RT SARS-CoV-2 Patient Fact Sheet EN [id number].pdfBASI METABOLIC [id number] 13:13:54 Test Item Value Reference Range Interpretation Comments SODIUM (BEAKER) 141 meq/L 136-145 (test code = 381) POTASSIUM (BEAKER) 4.1 meq/L 3.5-5.1 (test code = 379) CHLORIDE (BEAKER) 106 meq/L 98-107 (test code = 382) CO2 (BEAKER) (test 27 meq/L 22-29 code = 355) BLOOD UREA NITROGEN 19 mg/dL 7-21 (BEAKER) (test code = 354) CREATININE (BEAKER) 1.04 mg/dL 0.57-1.25 (test code = 358) GLUCOSE RANDOM 91 mg/dL 70-105 (BEAKER) (test code = 652) CALCIUM (BEAKER) 9.1 mg/dL 8.4-10.2 (test code = 697) EGFR (BEAKER) (test 73 mL/min/1.73 ESTIMA RUTHANN GFR IS code = 1092) sq m NOT ACCURATE CREATININE CLEARANCE IN PREDICTING GLOMERULAR FILTRATION RATE . ESTIMATED GFR I S NOT APPLICABLE FOR DIALYSIS PATIEN TS. [employer] Superintendent ID - MANOJ [facility] W/PLT COUNT & AUTO [id number] 12:49:02 Test Item Value Reference Range Interpretation Comments WHITE BLOOD CELL COUNT (BEAKER) 10.1 K/ L 3.5-10.5 (test code = 775) RED BLOOD CELL COUNT (BEAKER) 5.17 M/ L 4.63-6.08 (test code = 761) HEMOGLOBIN (BEAKER) (test code = 16.0 GM/DL 13.7-17.5 410) HEMATOCRIT (BEAKER) (test code = 47.0 % 40.1-51.0 411) MEAN CORPUSCULAR VOLUME (BEAKER) 90.9 fL 79.0-92.2 (test code = 753) MEAN CORPUSCULAR HEMOGLOBIN 30.9 pg 25.7-32.2 (BEAKER) (test code = 751) MEAN CORPUSCULAR HEMOGLOBIN CONC 34.0 GM/DL 32.3-36.5 (BEAKER) (test code = 752) RED CELL DISTRIBUTION WIDTH 12.3 % 11.6-14.4 (BEAKER) (test code = 412) PLATELET COUNT (BEAKER) (test 285 K/CU MM 150-450 code = 756) MEAN PLATELET VOLUME (BEAKER) 9.8 fL 9.4-12.4 (test code = 754) NUCLEATED RED BLOOD CELLS 0 /100 WBC 0-0 (BEAKER) (test code = 413) NEUTROPHILS RELATIVE PERCENT 53 % (BEAKER) (test code = 429) LYMPHOCYTES RELATIVE PERCENT 33 % (BEAKER) (test code = 430) MONOCYTES RELATIVE PERCENT 10 % (BEAKER) (test code = 431) EOSINOPHILS RELATIVE PERCENT 3 % (BEAKER) (test code = 432) BASOPHILS RELATIVE PERCENT 1 % (BEAKER) (test code = 437) NEUTROPHILS ABSOLUTE COUNT 5.32 K/ L 1.78-5.38 (BEAKER) (test code = 670) LYMPHOCYTES ABSOLUTE COUNT 3.32 K/ L 1.32-3.57 (BEAKER) (test code = 414) MONOCYTES ABSOLUTE COUNT (BEAKER) 0.98 K/ L 0.30-0.82 H (test code = 415) EOSINOPHILS ABSOLUTE COUNT 0.26 K/ L 0.04-0.54 (BEAKER) (test code = 416) BASOPHILS ABSOLUTE COUNT (BEAKER) 0.14 K/ L 0.01-0.08 H (test code = 417) IMMATURE GRANULOCYTES-RELATIVE 0 % 0-1 PERCENT (BEAKER) (test code = 2801)
[2022-07-30 07:52] LABS: Absolute Lymphocytes (CBC) 2.5 K/uL (0.7-4.9); Hematocrit 45.1 % (39.6-49.0); Lymphocytes % 23.6 % (15.3-44.8); MCV 92.6 fL (80-100); MPV 8.4 fL (7.6-11.3); RBC Red Blood Cell Count 4.87 M/uL (4.33-5.43)
[2022-07-30 08:02] LABS: Protime INR 0.89
[2022-07-30 08:08] LABS: Albumin 3.6 g/dL (3.4-5.0); Bilirubin Total 0.4 mg/dL (0.2-1.0); Potassium 3.9 mEq/L (3.5-5.1)
--- NOTE | 2022-07-30 09:03 | RAD REPORT ---
EXAM DESCRIPTION: CT - Lower Extremity W/ Cont - 07/30/2022 8:42 am CLINICAL HISTORY: left leg eval stent occlusion COMPARISON: Lower Extremity [facility] dated 02/27/2021 TECHNIQUE: CTA runoff was performed with IV contrast scanning from the pelvis to the ankles. 3D max imum intensity pixel (MIP) reconstructions were created FINDINGS: Nonvascular: Visualized liver common kidneys, bowel, bladder within normal limits. Mild pr ostatomegaly. Vascular: Predominantly noncalcified plaque in the infrarenal abdominal aorta. The iliac vessels have calcified and noncalcified plaque. A moderate stenosis is present at the left distal common iliac artery. The right common iliac artery does not have a flow limiting stenosis. The right external iliac artery is patent. The left external iliac artery is 8 moderate proximal stenosis. The left internal iliac arter y has a severe proximal stenosis. The right internal iliac artery is patent. Right lower extremity: The right common femoral artery has mild to moderate stenoses distally. The ri ght SFA is patent. The popliteal artery is patent. The right anterior tibial artery is occluded along portions. The peroneal artery, posterior tibial artery, and tibioperoneal trunk have multifocal sten oses but are patent. Left lower extremity: The left common femoral artery is patent. The left SFA stent is occluded along its entire course. There is reconstitution at the popliteal artery. Popliteal artery is patent. The l eft anterior to artery has multifocal occlusions. The posterior tibial artery, peroneal artery, and t ibioperoneal trunk are patent. IMPRESSION: 1. Left lower extremity: The left SFA stent is occluded along its entire course. Collate ral flow at the popliteal artery. Two-vessel runoff at the ankle. 2. Right lower extremity: Mild to moderate right common femoral artery stenosis. Two-vessel runoff at the ankle.
[2022-07-30] MEDS ORDERED: HEPARIN/D5W 25,000 UNIT/500 ML BAG IV ONE (10:02)
[2022-07-30] MEDS ORDERED: HEPARIN 5000 UNIT/ML 1 ML VIAL ONE (10:02)
--- NOTE | 2022-07-30 10:18 | EDPHYS ---
Physician Documentation [facility] Name: Casper Elena Age: 62 yrs Sex: Male : 1960 Arrival Date: 07/30/2022 Time: 07:14 Bed 19 Private MD: ED Physician Gonzalo Liu HPI: 07/30 07:40 This 62 yrs old Male presents to ER via Ambulatory with complaints of Leg bs3 Pain. 07:40 62-year-old male history of CAD status post stent history of hypertension, peripheral bs3 vascular disease with claudication he has a history of superficial femoral artery super, profundal femoral artery aspiration, drug-eluting stents in the profunda/superficial femoral artery junction, as if a DCP placement, SFA/popliteal ELENA placement and coming in with left leg pain he notes running out of his Plavix 2 weeks ago he is still smoking he notes pain worse with ambulation better with rest in addition he notes tingling in his distal foot over the last 2 days no weakness. Historical: - Allergies: 07:23 Codeine; ll1 - PMHx: 07:23 CVA; Myocardial infarction; ll1 - PSHx: 07:23 heart stent; ll1 - Immunization history:: Adult Immunizations up to date. - Social history:: Smoking status: Patient reports the use of cigarette tobacco products, smokes one-half pack cigarettes per day. ROS: 07:40 Constitutional: Negative for fever, chills bs3 07:40 All other systems are negative. Exam: 07:40 Constitutional: This is a well developed, well nourished patient who is awake, alert, bs3 and in no acute distress. Head/Face: Normocephalic, atraumatic. Eyes: Pupils equal round and reactive to light, extra-ocular motions intact. Lids and lashes normal. Neck: Trachea midline, no thyromegaly, no neck stiffness Chest/axilla: Normal chest wall appearance and motion. Nontender with no deformity. No lesions are appreciated. Cardiovascular: Regular rate and rhythm with a normal S1 and S2. symmetric pulses in upper extremities Respiratory: Lungs have equal breath sounds bilaterally, clear to auscultation, no respiratory distress Abdomen/GI: Soft, non-tender, no rebound or guarding Skin: Warm, dry with normal turgor. Normal color with no rashes, no lesions, and no evidence of cellulitis. MS/ Extremity: left foot is slight cool at the distal aspect compared to right, however the dorsum is warm and perfused Neuro: Awake and alert, GCS 15, oriented to person, place, time, and situation. Cranial nerves II-XII grossly intact. Motor strength 5/5 in all extremities. Sensory grossly intact. Psych: Awake, alert, with orientation to person, place and time. Behavior, mood, and affect are within normal limits. Vital Signs: 07:24 BP 161 / 94; Pulse 64; Resp 16; Temp 97.8; Pulse Ox 98% ; Pain 8/10; ll1 09:00 BP 119 / 74; Pulse 55; Resp 16; Pulse Ox 97% on R/A; eh3 09:48 Weight 72.39 kg; eh3 10:00 BP 141 / 86; Pulse 58; Resp 18; Pulse Ox 97% on R/A; eh3 11:00 BP 143 / 86; Pulse 54; Resp 16; Pulse Ox 97% on R/A; eh3 07:24 Pain Scale: Adult ll1 MDM: 07:21 Patient medically screened. 3 09:36 Data reviewed: vital signs, nurses notes. ED course: Patient with occlusion of his SFA bs3 stents will start on heparin attempted to reach out to his vascular surgeon through [place] text without a response we will transfer to [facility] due to lack of capacity here. . 10:16 ED course: [facility] was at capacity [address], cvimu. 07/30 07:32 Order name: CBC with Diff; Complete Time: 08:13 [facility] 07/30 07:32 Order name: Comprehensive Metabolic Panel; Complete Time: 08:13 [facility] 07/30 07:32 Order name: PT-INR; Complete Time: 08:13 [facility] 07/30 07:32 Order name: Ptt, Activated; Complete Time: 08:13 [facility] 07/30 07:46 Order name: Lower Extremity W/ Cont; Complete Time: 10:08 EDMS Administered Medications: 10:05 Drug: Heparin (DVT/PE- Bolus per protocol) - HEParin IVP 80 units/kg {Co-Signature: kr3 ll1 (Meg Zapata RN).} Route: IVP; Site: right antecubital; 11:00 Follow up: Response: No adverse reaction eh3 10:05 Drug: Heparin (DVT/PE Drip) - ([place] [address] units, D5W IV 500 ml) 18 units/kg/hr ll1 {Co-Signature: kr3 (Meg Zapata RN).} Route: IV; Rate: bolus; Site: right antecubital; 11:18 Follow up: Response: No adverse reaction; IV Status: Infusion continued upon transfer; eh3 IV Intake: 32ml Disposition Summary: 07/30/22 10:17 Transfer Ordered Transfer Location: [facility] bs3 Reason: Higher level of care bs3 Condition: Fair bs3 Problem: new bs3 Symptoms: are unchanged bs3 Accepting Physician: Dr. Jcarlos Garza / [facility] CVIMU(07/30/22 11:20) eh3 Diagnosis - Pain in left leg bs3 - Stenosis of peripheral vascular stent, initial encounter bs3 Forms: - Medication Reconciliation Form bs3 - SBAR form bs3 Signatures: Dispatcher [employer] EDIA Toshia Peters Lynsay, RN RN ll1 Laurie Rodriguez RN RN eh3 Gonzalo Liu MD MD bs3 Meg Zapata RN kr3 Corrections: (The following items were deleted from the chart) 07:26 07:23 Social history: Smoking status: Patient denies any tobacco usage or history of. ll1 ll1 07:45 07:40 Constitutional: This is a well developed, well nourished patient who is awake, bs3 alert, and in no acute distress. Head/Face: Normocephalic, atraumatic. Eyes: Pupils equal round and reactive to light, extra-ocular motions intact. Lids and lashes normal. Neck: Trachea midline, no thyromegaly, no neck stiffness bs3 07:46 07:33 Angio Aorta For Dissection+CT.RAD.BRZ ordered. EDIA EDMS 07:46 07:23 PMHx: DVT, PE; ll1 ll1 10:39 10:17 david bs3 eb 11:20 10:39 Dr. Jcarlos Garza / [facility] CVIMU eh3
--- NOTE | 2022-07-30 10:18 | ER ---
Nurse's Notes [facility] Name: Casper Elena Age: 62 yrs Sex: Male : 1960 Arrival Date: 07/30/2022 Time: 07:14 Bed 19 Private MD: Diagnosis: Pain in left leg;Stenosis of peripheral vascular stent, initial encounter Presentation: 07/30 07:24 Chief complaint: Patient states: L leg pain with walking for 2 days. Out of plavix for ll1 2 weeks. Coronavirus screen: Vaccine status: Patient reports receiving the 2nd dose of the covid vaccine. Client denies travel out of the [place] in the last 14 days. At this time, the client does not indicate any symptoms associated with coronavirus-19. Ebola Screen: Patient denies travel to an Ebola-affected area in the 21 days before illness onset. Initial Sepsis Screen: Does the patient meet any 2 criteria? No. Patient's initial sepsis screen is negative. Does the patient have a suspected source of infection? No. Patient's initial sepsis screen is negative. Risk Assessment: Do you want to hurt yourself or someone else? Patient reports no desire to harm self or others. Onset of symptoms was July 29, 2022. 07:24 Method Of Arrival: Ambulatory ll1 07:24 Acuity: ANDREW 3 ll1 Triage Assessment: 07:25 General: Appears in no apparent distress. Behavior is calm, cooperative, appropriate ll1 for age. Pain: Complains of pain in left leg Quality of pain is described as aching. Musculoskeletal: Circulation, motion, and sensation intact. Capillary refill < 3 seconds. Historical: - Allergies: 07:23 Codeine; ll1 - PMHx: 07:23 CVA; Myocardial infarction; ll1 - PSHx: 07:23 heart stent; ll1 - Immunization history:: Adult Immunizations up to date. - Social history:: Smoking status: Patient reports the use of cigarette tobacco products, smokes one-half pack cigarettes per day. Screenin:25 [facility] ED Fall Risk Assessment (Adult) Score/Fall Risk Level 0 - 2 = Low Risk ll1 Oriented to surroundings, Maintained a safe environment, Educated pt \T\ family on fall prevention, incl call for assistance when getting out of bed, Hourly rounding (assess needs \T\ fall precautionary measures) done. Abuse screen: Denies threats or abuse. Nutritional screening: No deficits noted. Tuberculosis screening: No symptoms or risk factors identified. Assessment: 07:42 Reassessment: No changes from previously documented assessment. Patient and/or family ll1 updated on plan of care and expected duration. Pain level reassessed. Patient is alert, oriented x 3, equal unlabored respirations, skin warm/dry/pink. 08:19 Reassessment: No changes from previously documented assessment. to CT via wheelchair. ll1 08:48 Reassessment: No changes from previously documented assessment. Patient and/or family ld1 updated on plan of care and expected duration. Pain level reassessed. 09:00 General: Appears in no apparent distress. comfortable, Behavior is calm, cooperative, eh3 appropriate for age. Pain: Denies pain. Neuro: Level of Consciousness is awake, alert, obeys commands, Oriented to person, place, time, situation. Cardiovascular: Capillary refill < 3 seconds Patient's skin is warm and dry. Respiratory: Airway is patent Respiratory effort is even, unlabored, Respiratory pattern is regular, symmetrical. GI: Abdomen is round non-distended. : No signs and/or symptoms were reported regarding the genitourinary system. EENT: No signs and/or symptoms were reported regarding the EENT system. Derm: Skin is pink, warm \T\ dry. Derm: Skin is intact, is healthy with good turgor. Musculoskeletal: Circulation, motion, and sensation intact. Reports pain in left leg Pt states left leg does not hurt unless he's been walking for 15 minutes or so. 10:00 Reassessment: Patient appears in no apparent distress at this time. Patient and/or eh3 family updated on plan of care and expected duration. Pain level reassessed. Patient is alert, oriented x 3, equal unlabored respirations, skin warm/dry/pink. 11:00 Reassessment: Patient appears in no apparent distress at this time. Patient and/or eh3 family updated on plan of care and expected duration. Pain level reassessed. Patient is alert, oriented x 3, equal unlabored respirations, skin warm/dry/pink. Vital Signs: 07:24 BP 161 / 94; Pulse 64; Resp 16; Temp 97.8; Pulse Ox 98% ; Pain 8/10; ll1 09:00 BP 119 / 74; Pulse 55; Resp 16; Pulse Ox 97% on R/A; eh3 09:48 Weight 72.39 kg; eh3 10:00 BP 141 / 86; Pulse 58; Resp 18; Pulse Ox 97% on R/A; eh3 11:00 BP 143 / 86; Pulse 54; Resp 16; Pulse Ox 97% on R/A; eh3 07:24 Pain Scale: Adult ll1 ED Course: 07:17 Patient arrived in ED. mr 07:21 Gonzalo Liu MD is Attending Physician. bs3 07:23 Kaiden Guzmán, RADHA is Primary Nurse. ll1 07:23 Arm band placed on Patient placed in an exam room, on a stretcher. ll1 07:24 Triage completed. ll1 07:25 Patient has correct armband on for positive identification. Bed in low position. Call ll1 light in reach. Client placed on continuous cardiac and pulse oximetry monitoring. NIBP monitoring applied. 07:30 Inserted saline lock: 20 gauge in right antecubital area, using aseptic technique. ll1 Blood collected. 08:44 Lower Extremity W/ Cont In Process Unspecified. EDMS 09:00 Report received from Nely Guzmán RN. eh3 09:42 initiated a transfer with Toshia Godoy from the [facility] [place]. eb 09:44 per Toshia at the transfer center/ [facility] will have to decline the patient in eb transfer the are at capacity. 09:45 attempted to initiate a transfer with [facility] and placed on eb hold. 10:04 initiated a transfer with Haley from the [facility]. eb 10:09 connected the vascular surgeon saxophone assembler for [facility] with Dr. Liu for eb patient transfer consultation. 10:12 administrative approval given by Haley Guy Rn/ patient has been accepted to [facility]/ Dr. Jcarlos Garza has accepted the patient in transfer/ report to be called to [phone]. 11:20 No provider procedures requiring assistance completed. Patient transferred, IV remains eh3 in place. Administered Medications: 10:05 Drug: Heparin (DVT/PE- Bolus per protocol) - HEParin IVP 80 units/kg {Co-Signature: kr3 ll1 (Meg Zapata RN).} Route: IVP; Site: right antecubital; 11:00 Follow up: Response: No adverse reaction 3 10:05 Drug: Heparin (DVT/PE Drip) - ([place] [address] units, D5W IV 500 ml) 18 units/kg/hr 1 {Co-Signature: kr3 (Meg Zapata RN).} Route: IV; Rate: bolus; Site: right antecubital; 11:18 Follow up: Response: No adverse reaction; IV Status: Infusion continued upon transfer; 3 IV Intake: 32ml Medication: 07:25 VIS not applicable for this client. ll1 Intake: 11:18 IV: 32ml; Total: 32ml. 3 Outcome: 10:17 ER care complete, transfer ordered by . 3 11:20 Transferred by ground EMS to [facility], Transfer form completed. 3 11:20 Condition: stable 11:20 Instructed on the need for transfer. 11:20 Patient left the ED. 3 Signatures: Dispatcher [employer] CORBINWV HoldenRissa mr PetersToshia Lynsay, RN RN ll1 Iman Ramirez RN RN feli1 Laurie Rodriguez RN RN eh3 Gonzalo Liu MD MD bs3 Meg Zapata RN kr3 Corrections: (The following items were deleted from the chart) 07:26 07:23 Social history: Smoking status: Patient denies any tobacco usage or history of. 1 1 07:46 07:23 PMHx: DVT, PE; 1 1 10:24 09:48 72.39 kg; 1 3 10:24 09:00 BP 119 / 74; Pulse 55bpm; Resp 16bpm; Pulse Ox 97% RA; [facility]3 10:24 10:00 BP 141 / 86; Pulse 58bpm; Resp 18bpm; Pulse Ox 97% RA; [facility]3 10:25 09:00 [facility]
[2022-07-30 11:31] VITALS: TEMP 97.8
[2022-07-30 11:42] VITALS: O2SAT 97
[2022-07-30 11:48] VITALS: BP 143/86
== END 2022-07-30 11:20 | disposition short-term general hospital (02) ==
LOC: ER 07:14
DX: T82.856A Stenosis of peripheral vascular stent, initial encounter (principal); F17.210 Nicotine dependence, cigarettes, uncomplicated; Z95.818 Presence of other cardiac implants and grafts; Z86.73 Personal history of transient ischemic attack (TIA), and cerebral infarction without residual deficits
CPT/HCPCS: 96365; 85025; 36415; 85610; 85730; 80053; 73701; 99285; Q9967; J1644 ×2

== ENCOUNTER 2023-01-16 05:04 | Observation (INO) | payer BC ==
--- OUTSIDE RECORDS SUMMARY | 2023-01-16 05:09 | XMS REPORT | Continuity of Care Document ---
:1960 Author Organization [facility] t Address [address] [facility] [address] [place] [address] Care Team Providers Name Role Phone MADIHA GILMORE Attending Clinician Unavailable Akin Pelayo MD Attending Clinician AKIN PELAYO Attending Clinician Unavailable Justus Villatoro RN Attending Clinician Unavailable AKIN PELAYO Admitting Clinician Unavailable Payers Payer Name Policy Type Policy Number Effective Date Expiration Date S ource [place] [id number] 2022 00:00:00 OUT OF STATE Problems This patient has no known problems. Allergies, Adverse Reactions, Alerts Allergy Allergy Status Severity Reaction(s) Onset Inactive Treating Comm ents Source Name Type Date Date Clinician CODEINE Allergy Active High Hives [facility] Codeine Drug Active Hives[facility] Social History Social Habit Start Date Stop Date Quantity Comments Source History of tobacco Smokes tobacco [facility] use daily Medical Center History SDOH [facility] Alcohol Std Drinks [facility]ica [facility] Center History SDOH [facility] Alcohol Binge Medical [facility] History SDOH [facility] Alcohol Comment Medical C enter Sexual orientation [facility] Alcohol intake 2021-04-13 2021-04-[address] [facility] 00:[facility] 00:00:00 non-drinker Medical Rafy r (finding) Tobacco use and 2021-04-09 2021-04-[address] [facility] exposure 00:00:00 00:00:00 non-user Medical Center History SDOH 2021-04-09 2021-04-09 1 MARCK Issa Alcohol Frequency 00:00:00 00:00:00 [facility] Sex Assigned At [birth year] MARCK Costellos 00:00:00 00:00:00 [facility] Smoking Status Start Date Stop Date Source Smokes tobacco daily 2021-04-09 00:00:00 [facility] Medications Ordered Filled Start Stop Current Ordering Indication Dosage Frequency Signature Comments Components Source Medication Medication Date Date Medication? Clinician (SIG) Name Name ibuprofen Yes [facility] 13:53: [address] aspirin 2021-0 Yes [facility] 81 mg Cap 13:53: [address] ibuprofen 2021-0 Yes [facility] by [facility] 13:53: [address] aspirin 2021-0 Yes Take [facility] 2[facility] 81 mg Cap 13:53: [address] ibuprofen 2021-0 Yes Take by [facility] Cap 2[facility]. [facility] 13:53: [address] aspirin 2021-0 Yes Take [facility] 2[facility] 81 mg Cap 13:53: [address] ibuprofen 2021-0 Yes [facility] by [facility] 13:53: [address] aspirin 2021-0 Yes Take [facility] 2[facility] 81 mg Cap 13:53: [address] ibuprofen 2021-0 Yes Take by [facility]. [facility] 13:53: [address] aspirin 2021-0 Yes Take [facility] 81 mg Cap 13:53: [address] ibuprofen 2021-0 Yes Take by [facility] Cap 2[facility]11 [facility]. [facility] 13:53: [address] aspirin 2021-0 Yes Take by [facility] 2[facility] 81 mg Cap 13:53: [address] ibuprofen 2021-0 Yes Take by [facility] 200 [facility] Cap 2-11 [facility]. [facility] 13:53: [address] aspirin 2021-0 Yes Take [facility] 2-[facility]. [facility] 81 mg Cap 13:53: [address] ibuprofen 2021-0 Yes Take by [facility] Cap 2[facility]. [facility] 13:53: [address] aspirin 2021-0 Yes Take by [facility] 2-[facility]. [facility] 81 mg Cap 13:53: [address] ibuprofen 2021-0 Yes Take by [facility] 200 [facility] Cap 2-11 [facility]. [facility] 13:53: [address] aspirin 2021-0 Yes Take by [facility] 2-[facility]. [facility] 81 mg Cap 13:53: [address] ibuprofen 2021-0 Yes Take by [facility] Cap 2-11 [facility]. [facility] 13:53: [address] aspirin 2021-0 Yes Take by [facility] 2-[facility]. [facility] 81 mg Cap 13:53: [address] clopidogreL 2021-0 2022- No 75mg QD Take [address] [facility] [address] (PLAVIX) 75 04-09 tablet (75 [facility] mg tablet 00:00: 23:59 mg total) Me dical 00 :00 by mouth Center daily. clopidogreL 2021-2022- No 75mg QD Take [address] [facility] ([facility]AVIX) 75 04-09 tablet (75 [facility] mg tablet 00:00: 23:59 mg total) Me dical 00 :00 by mouth Center daily. clopidogreL 2021-2022- No 75mg QD Take [address] [facility] (PLAVIX) 75 -04-09 tablet (75 [facility] mg tablet 00:00: 23:59 mg total) Me dical 00 :00 by mouth Center daily. clopidogreL 2021-0 3- No 75mg QD Take [address] [facility] (PLAVIX) 75 -12 29- tablet (75 [facility] mg tablet 00:00: 23:59 mg total) Me dical 00 :00 by mouth Center daily. clopidogreL 2021-2022- No 75mg QD Take [address] [facility] (PLAVIX) 75 04-09 tablet (75 [facility] mg tablet 00:00: [...] QD Take [address] [facility] (PLAVIX) 75 2-12 29-11 tablet (75 [facility] mg tablet 00:00: 23:59 mg total) Me dical 00 :00 by mouth Center daily. clopidogreL 2022- No 75mg QD Take [address] [facility] (PLAVIX) 75 2-12 29-11 tablet (75 [facility] mg tablet 00:00: 23:59 mg total) Me dical 00 :00 by mouth Center daily. Vital Signs Vital Name Observation Time Observation Value Comments Source HEIGHT 2021-04-09 07:21:00 177.8 cm WEIGHT 2021-04-09 07:21:00 81.92 kg HEIGHT 2021-04-09 07:21:00 177.8 cm WEIGHT 2021-04-09 07:21:00 81.92 kg HEIGHT 2021-04-06 11:49:00 177.8 cm WEIGHT 2021-04-06 11:49:00 83.008 kg HEIGHT 2021-04-06 11:49:00 177.8 cm WEIGHT 2021-04-06 11:49:00 83.008 kg Systolic blood 2021-04-09 13:00:00 135 mm[Hg] [facility] Diastolic blood 2021-04-09 13:00:00 78 mm[Hg] [facility] S t [facility] Heart rate 2021-04-09 13:00:00 80 /min [facility] Respiratory rate 2021-04-09 13:00:00 16 /min [facility] Oxygen saturation in 2021-04-09 12:14:00 97 /min [facility] Arterial blood by Medical Ce nter Pulse oximetry Body temperature 2021-04-09 07:21:00 35.61 Ambar [facility] Body height 2021-04-09 07:21:00 177.8 cm [facility] Body weight 2021-04-09 07:21:00 81.92 kg [facility] BMI 2021-04-09 07:21:00 25.91 kg/m2 [facility] Procedures Procedure Date / Time Performed Performing Clinician Sour e CBC W/PLT COUNT & AUTO 2021-04-09 11:52:00 Brandon Mcintyre [facility] CBC W/PLT COUNT & AUTO 2021-04-09 11:52:00 Brandon Mcintyre [facility] PERIPHERAL ANGIOS / 2021-04-09 08:22:00 Pierce [facility] AORTOGRAM [facility] ECG 12-LEAD 2021-04-09 08:19:51 Pierce [facility] ECG 12-LEAD 2021-04-09 08:19:51 Unknown, Hl7 Doctor [facility] ABORH, MANUAL 2021-04-09 08:12:00 Essie Vieira [facility] TYPE AND SCREEN, 2021-04-09 07:58:00 Rupal Mcfadden [facility] AUTOMATED [facility] CARDIAC CATH REPORT - 2021-04-09 00:00:00 Provider, [place] [facility] SCAN Scanning [facility] CBC W/PLT COUNT & AUTO 2021-04-06 12:29:00 Akin Pelayo [facility] BASIC METABOLIC PANEL 2021-04-06 12:29:00 Pierce [facility] CBC W/PLT COUNT & AUTO 2021-04-06 12:29:00 Pierce dayton [facility] SARS-COV2/RT-PCR ([facility] & 2021-04-06 12:08:[address] [facility] REF LABS) Medical Center Plan of Care Planned Activity Planned Date Details Comments Source Future Scheduled 2022-10-28 Influenza Vaccine (#1) [facility] 00:00:00 [code = Influenza Vaccine Me dical Center (#1)] Future Scheduled 2022-10-28 INFLUENZA VACCINE (Season [facility] 00:00:00 Ended) [code = INFLUENZA Med ical Center VACCINE (Season Ended)] Future Scheduled 2022-10-28 INFLUENZA VACCINE (Season [facility] 00:00:00 Ended) [code = INFLUENZA Med ical Center VACCINE (Season Ended)] Future Scheduled 2022-10-28 Influenza Vaccine (Season [facility] 00:00:00 Ended) [code = Influenza Med ical Center Vaccine (Season Ended)] Future Scheduled 2022-10-28 Influenza Vaccine (Season [facility] 00:00:00 Ended) [code = Influenza Med ical Center Vaccine (Season Ended)] Future Scheduled 2022-10-28 Influenza Vaccine (Season [facility] 00:00:00 Ended) [code = Influenza Med ical Center Vaccine (Season Ended)] Future Scheduled 2022-02-[address] [facility] 00:00:00 (12+) [code = DEPRESSION Med ical Center SCREENING (12+)] Future Scheduled 2022-02-[address] [facility] 00:00:00 (12+) [code = DEPRESSION Med ical Center SCREENING (12+)] Future Scheduled 2022-02-[address] [facility] 00:00:00 (12+) [code = DEPRESSION Med ical Center SCREENING (12+)] Future Scheduled 2022-02-[address] [facility] 00:00:00 (12+) [code = DEPRESSION Med ical Center SCREENING (12+)] Future Scheduled 2022-02-[address] [facility] 00:00:00 (12+) [code = DEPRESSION Med ical Center SCREENING (12+)] Future Scheduled 2022-02-[address] [facility] 00:00:00 (12+) [code = DEPRESSION Med ical Center SCREENING (12+)] Future Scheduled 2022-02-[address] [facility] 00:00:00 (12+) [code = DEPRESSION Med ical Center SCREENING (12+)] Future Scheduled 2021-10-28 INFLUENZA VACCINE (#1) [facility] 00:00:00 [code = INFLUENZA VACCINE Me dical Center (#1)] Future Scheduled 2021-10-28 INFLUENZA VACCINE (#1) [facility] 00:00:00 [code = INFLUENZA VACCINE Me dical Center (#1)] Future Scheduled 2021-10-28 INFLUENZA VACCINE (#1) [facility] 00:00:00 [code = INFLUENZA VACCINE Me dical Center (#1)] Future Scheduled 2021-10-28 INFLUENZA VACCINE (#1) [facility] 00:00:00 [code = INFLUENZA VACCINE Me dical Center (#1)] Future Scheduled 2021-02-[address] [facility] 00:00:00 (12+) [code = DEPRESSION Med ical Center SCREENING (12+)] Future Scheduled 2021-02-[address] [facility] 00:00:00 (12+) [code = DEPRESSION Med ical Center SCREENING (12+)] Future Scheduled 2021-02-[address] [facility] 00:00:00 (12+) [code = DEPRESSION Med ical Center SCREENING (12+)] Future Scheduled 2010-01-28 SHINGLES VACCINES [...] [facility] 00:00:00 [code = [id number]] Medical Ce nter Future Scheduled 1995-01-28 Lipid panel (procedure) [facility] 00:00:00 [code = [id number]] Medical Ce nter Future Scheduled 1995-01-28 Lipid panel (procedure) [facility] 00:00:00 [code = [id number]] Medical Ce nter Future Scheduled 1995-01-28 Lipid panel (procedure) [facility] 00:00:00 [code = [id number]] Medical Ce nter Future Scheduled 1995-01-28 Lipid panel (procedure) [facility] 00:00:00 [code = [id number]] Medical Ce nter Future Scheduled 1995-01-28 Lipid panel (procedure) [facility] 00:00:00 [code = [id number]] Medical Ce nter Future Scheduled 1995-01-28 Lipid panel (procedure) [facility] 00:00:00 [code = [id number]] Medical Ce nter Future Scheduled 1995-01-28 Lipid panel (procedure) [facility] 00:00:00 [code = 86692769] Medical Ce nter Future Scheduled 1995-01-28 Lipid panel (procedure) [facility] 00:00:00 [code = [id number]] Medical Ce nter Future Scheduled 1995-01-28 Lipid panel (procedure) [facility] 00:00:00 [code = [id number]] Medical Ce nter Future Scheduled 1979-01-28 DTAP/TDAP/TD VACCINES ([address] [facility] 00:00:00 - Tdap) [code = Medical Cent er DTAP/TDAP/TD VACCINES (1 - Tdap)] Future Scheduled 1979-01-28 DTAP/TDAP/TD VACCINES ([address] [facility] 00:00:00 - Tdap) [code = Medical Cent er DTAP/TDAP/TD VACCINES (1 - Tdap)] Future Scheduled 1979-01-28 DTAP/TDAP/TD VACCINES ([address] [facility] 00:00:00 - Tdap) [code = Medical Cent er DTAP/TDAP/TD VACCINES (1 - Tdap)] Future Scheduled 1979-01-28 DTAP/TDAP/TD VACCINES ([address] [facility] 00:00:00 - Tdap) [code = Medical Cent er DTAP/TDAP/TD VACCINES (1 - Tdap)] Future Scheduled 1979-01-28 DTAP/TDAP/TD VACCINES ([address] [facility] 00:00:00 - Tdap) [code = Medical Cent er DTAP/TDAP/TD VACCINES (1 - Tdap)] Future Scheduled 1979-01-28 DTAP/TDAP/TD VACCINES ([address] [facility] 00:00:00 - Tdap) [code = Medical Cent er DTAP/TDAP/TD VACCINES (1 - Tdap)] Future Scheduled 1979-01-28 DTAP/TDAP/TD VACCINES ([address] [facility] 00:00:00 - Tdap) [code = Medical Cent er DTAP/TDAP/TD VACCINES (1 - Tdap)] Future Scheduled 1979-01-28 DTAP/TDAP/TD VACCINES ([address] [facility] 00:00:00 - Tdap) [code = Medical Cent er DTAP/TDAP/TD VACCINES (1 - Tdap)] Future Scheduled 1979-01-28 DTAP/TDAP/TD VACCINES ([address] [facility] 00:00:00 - Tdap) [code = Medical Cent er DTAP/TDAP/TD VACCINES (1 - Tdap)] Future Scheduled 1979-01-28 DTAP/TDAP/TD VACCINES ([address] [facility] 00:00:00 - Tdap) [code = Medical Cent er DTAP/TDAP/TD VACCINES (1 - Tdap)] Future Scheduled [...] HEPATITIS C Medical Center SCREENING] Future Scheduled 1975-01-[address] [facility] 00:00:00 virus screening Medical [facility] er (procedure) [code = [id number]] Future Scheduled [address] [facility] 00:00:00 Counseling and Screening Med ical Center (12+) [code = Tobacco Cessation Counseling and Screening (12+)] Future Scheduled [address] [facility] 00:00:00 Counseling and Screening Med ical Center (12+) [code = Tobacco Cessation Counseling and Screening (12+)] Future Scheduled [address] [facility] 00:00:00 Counseling and Screening Med ical Center (12+) [code = Tobacco Cessation Counseling and Screening (12+)] Future Scheduled [address] [facility] 00:00:00 Counseling and Screening Med ical Center (12+) [code = Tobacco Cessation Counseling and Screening (12+)] Future Scheduled [address] [facility] 00:00:00 Counseling and Screening Med ical Center (12+) [code = Tobacco Cessation Counseling and Screening (12+)] Future Scheduled [address] [facility] 00:00:00 Counseling and Screening Med ical Center (12+) [code = Tobacco Cessation Counseling and Screening (12+)] Future Scheduled [address] [facility] 00:00:00 Counseling and Screening Med ica Center (12+) [code = Tobacco Cessation Counseling and Screening (12+)] Future Scheduled 1966-01-28 PNEUMOCOCCAL VACCINE 0-[address] [facility] 00:00:00 YRS (1 - PCV) [code = Medica l Center PNEUMOCOCCAL VACCINE 0-64 YRS (1 - PCV)] Future Scheduled 1966-01-28 PNEUMOCOCCAL VACCINE 0-[address] [facility] 00:00:00 YRS (1 - PCV) [code = Medica l Center PNEUMOCOCCAL VACCINE 0-64 YRS (1 - PCV)] Future Scheduled 1966-01-28 PNEUMOCOCCAL VACCINE 0-[address] [facility] 00:00:00 YRS (1 - PCV) [code = Medica l Center PNEUMOCOCCAL VACCINE 0-64 YRS (1 - PCV)] Future Scheduled 1966-01-28 PNEUMOCOCCAL VACCINE 0-[address] [facility] 00:00:00 YRS (1 - PCV) [code = Medica l Center PNEUMOCOCCAL VACCINE 0-64 YRS (1 - PCV)] Future Scheduled 1966-01-28 Pneumococcal Vaccine: [facility] 00:[facility]:00 0-64 Years (1 - PCV) Medical Center [code = Pneumococcal Vaccine: 0-64 Years (1 - PCV)] Future Scheduled 1966-01-28 Pneumococcal Vaccine: [facility] 00:[facility]:00 0-64 Years (1 - PCV) Medical Center [code = Pneumococcal Vaccine: 0-64 Years (1 - PCV)] Future Scheduled 1966-01-28 Pneumococcal Vaccine: [facility] 00:00:00 0-64 Years (1 - PCV) Medical Center [code = Pneumococcal Vaccine: 0-64 Years (1 - PCV)] Future Scheduled 1966-01-28 PNEUMOCOCCAL VACCINE 0-[address] [facility] 00:00:00 YRS (1 - PCV) [code = Medica l Center PNEUMOCOCCAL VACCINE 0-64 YRS (1 - PCV)] Future Scheduled 1966-01-28 PNEUMOCOCCAL VACCINE 0-[address] [facility] 00:00:00 YRS (1 - PCV) [code = Medica l Center PNEUMOCOCCAL VACCINE 0-64 YRS (1 - PCV)] Future Scheduled 1966-01-28 Pneumococcal Vaccine: [facility] 00:00:00 0-64 Years (1 - PCV) Medical Center [code = Pneumococcal Vaccine: 0-64 Years (1 - PCV)] Future Scheduled 1960 COVID-19 VACCINE (#1) [facility] 00:[facility]:00 [code = COVID-19 VACCINE Med ical Center (#1)] Future Scheduled 1960 COVID-19 VACCINE (#1) [facility] 00:00:00 [code = COVID-19 VACCINE Med ical Center (#1)] Future Scheduled 1960 COVID-19 VACCINE (#1) [facility] 00:00:00 [code = COVID-19 VACCINE Med ical Center (#1)] Future Scheduled 1960 COVID-19 VACCINE (#1) [facility] 00:00:00 [code = COVID-19 VACCINE Med ical Center (#1)] Future Scheduled 1960 COVID-19 VACCINE (#1) [facility] 00:00:00 [code = COVID-19 VACCINE Med ical Center (#1)] Future Scheduled 1960 COVID-19 VACCINE (#1) [facility] 00:00:00 [code = COVID-19 VACCINE Med ical Center (#1)] Future Scheduled 1960 COVID-19 VACCINE (#1) [facility] 00:00:00 [code = COVID-19 VACCINE Med ical Center (#1)] Future Scheduled 1960 COVID-19 VACCINE (#1) [facility] 00:00:00 [code = COVID-19 VACCINE Med ical Center (#1)] Future Scheduled 1960 COVID-19 VACCINE (#1) [facility] 00:00:00 [code = COVID-19 VACCINE Med ical Center (#1)] Future Scheduled 1960 COVID-19 VACCINE (#1) [facility] 00:00:00 [code = COVID-19 VACCINE Med ical Center (#1)] Future Scheduled 1960 Screening for malignant [facility] 00:00:00 neoplasm of colon Medical Ce nter (procedure) [code = [id number]] Future Scheduled 1960 Screening for malignant [facility] 00:00:00 neoplasm of colon Medical Ce nter (procedure) [code = 413494291] Future Scheduled 1960 Screening for malignant [facility] 00:00:00 neoplasm of colon Medical Ce nter (procedure) [code = 478206034] Future Scheduled 1960 Sigmoidoscopy [code = [facility] Sigmoidoscopy] Medical Cente r Future Scheduled 1960 CT Colonography (combo) [facility] 00:00:00 [code = CT Colonography [facility] (combo)] Future Scheduled 1960 Screening for malignant [facility] 00:00:00 neoplasm of colon Medical Ce nter (procedure) [code = 755731119] Future Scheduled 1960 Screening for malignant [facility] 00:00:00 neoplasm of colon Medical Ce nter (procedure) [code = 863581558] Future Scheduled 1960 Screening for malignant [facility] 00:00:00 neoplasm of colon Medical Ce nter (procedure) [code = 327969402] Future Scheduled 1960 Screening for malignant [facility] 00:00:00 neoplasm of colon Medical Ce nter (procedure) [code = 498084831] Future Scheduled 1960 Sigmoidoscopy [code = [facility] 00:[facility] Sigmoidoscopy] Medical Cente r Future Scheduled 1960 CT Colonography (combo) [facility] 00:00:00 [code = [facility] ([facility] Future Scheduled 1960 Screening for malignant [facility] 00:00:00 neoplasm of colon Medical Ce nter (procedure) [code = 615669677] Future Scheduled 1960 Screening for malignant [facility] 00:00:00 neoplasm of colon Medical Ce nter (procedure) [code = 601408291] Future Scheduled 1960 Screening for malignant [facility] 00:00:00 neoplasm of colon Medical Ce nter (procedure) [code = 003900786] Future Scheduled 1960 Screening for malignant [facility] 00:00:00 neoplasm of colon Medical Ce nter (procedure) [code = 162194907] Future Scheduled 1960 Sigmoidoscopy [code = [facility] 00:[facility] Sigmoidoscopy] Medical Cente r Future Scheduled 1960 CT Colonography (combo) [facility] 00:00:00 [code = CT [facility] ([facility])] Future Scheduled 1960 Screening for malignant [facility] 00:00:00 neoplasm of colon Medical Ce nter (procedure) [code = 222645749] Future Scheduled 1960 Screening for malignant [facility] 00:00:00 neoplasm of colon Medical Ce nter (procedure) [code = 575771080] Future Scheduled 1960 Screening for malignant [facility] 00:00:00 neoplasm of colon Medical Ce nter (procedure) [code = 090654905] Future Scheduled 1960 Screening for malignant [facility] 00:00:00 neoplasm of colon Medical Ce nter (procedure) [code = 571812157] Future Scheduled 1960 Sigmoidoscopy [code = [facility] 00:[facility] Sigmoidoscopy] Medical Cente r Future Scheduled 1960 CT Colonography (combo) [facility] 00:00:00 [code = CT [facility] ([facility])] Future Scheduled 1960 Screening for malignant [facility] 00:00:00 neoplasm of colon Medical Ce nter (procedure) [code = 186033438] Future Scheduled 1960 Screening for malignant [facility] 00:00:00 neoplasm of colon Medical Ce nter (procedure) [code = 022783887] Future Scheduled 1960 Screening for malignant [facility] 00:00:00 neoplasm of colon Medical Ce nter (procedure) [code = 839851025] Future Scheduled 1960 Screening for malignant [facility] 00:00:00 neoplasm of colon Medical Ce nter (procedure) [code = 021518389] Future Scheduled 1960 Sigmoidoscopy [code = [facility] 00:[facility] Sigmoidoscopy] Medical Cente r Future Scheduled 1960 CT Colonography (combo) [facility] 00:00:00 [code = CT [facility] ([facility])] Future Scheduled 1960 Screening for malignant [facility] 00:00:00 neoplasm of colon Medical Ce nter (procedure) [code = 315523084] Future Scheduled 1960 Screening for malignant [facility] 00:00:00 neoplasm of colon Medical Ce nter (procedure) [code = 564434808] Future Scheduled 1960 Screening for malignant [facility] 00:00:00 neoplasm of colon Medical Ce nter (procedure) [code = 329050147] Future Scheduled 1960 Screening for malignant [facility] 00:00:00 neoplasm of colon Medical Ce nter (procedure) [code = 742038563] Future Scheduled 1960 Sigmoidoscopy [code = [facility] 00:[facility] Sigmoidoscopy] Medical Cente r Future Scheduled 1960 CT Colonography (combo) [facility] 00:00:00 [code = CT [facility] ([facility])] Future Scheduled 1960 Screening for malignant [facility] 00:00:00 neoplasm of colon Medical Ce nter (procedure) [code = 033620762] Future Scheduled 1960 Screening for malignant [facility] 00:00:00 neoplasm of colon Medical Ce nter (procedure) [code = 336744841] Future Scheduled 1960 Screening for malignant [facility] 00:00:00 neoplasm of colon Medical Ce nter (procedure) [code = 140724013] Future Scheduled 1960 Screening for malignant [facility] 00:00:00 neoplasm of colon Medical Ce nter (procedure) [code = 151484455] Future Scheduled 1960 Sigmoidoscopy [code = [facility] 00:[facility] Sigmoidoscopy] Medical Cente r Future Scheduled 1960 CT Colonography (combo) [facility] 00:00:00 [code = CT [facility] ([facility])] Future Scheduled 1960 Screening for malignant [facility] 00:00:00 neoplasm of colon Medical Ce nter (procedure) [code = 118668631] Future Scheduled 1960 Screening for malignant [facility] 00:00:00 neoplasm of colon Medical Ce nter (procedure) [code = 457952036] Future Scheduled 1960 Screening for malignant [facility] 00:00:00 neoplasm of colon Medical Ce nter (procedure) [code = 762790131] Future Scheduled 1960 Screening for malignant [facility] 00:00:00 neoplasm of colon Medical Ce nter (procedure) [code = 204127556] Future Scheduled 1960 Sigmoidoscopy [code = [facility] 00:[facility] Sigmoidoscopy] Medical Cente r Future Scheduled 1960 CT Colonography (combo) [facility] 00:00:00 [code = CT Colonography [facility] (combo)] Future Scheduled 1960 Screening for malignant [facility] 00:00:00 neoplasm of colon Medical Ce nter (procedure) [code = 139872202] Future Scheduled 1960 Screening for malignant [facility] 00:00:00 neoplasm of colon Medical Ce nter (procedure) [code = 780953876] Future Scheduled 1960 Screening for malignant [facility] 00:00:00 neoplasm of colon Medical Ce nter (procedure) [code = 186514118] Future Scheduled 1960 Screening for malignant [facility] 00:00:00 neoplasm of colon Medical Ce nter (procedure) [code = 124437027] Future Scheduled 1960 Sigmoidoscopy [code = [facility] 00:[facility] Sigmoidoscopy] Medical Cente r Future Scheduled 1960 CT Colonography (combo) [facility] 00:00:00 [code = CT [facility]ography [facility] ([facility]bo)] Future Scheduled 1960 Screening for malignant [facility] 00:00:00 neoplasm of colon Medical Ce nter (procedure) [code = 672144664] Future Scheduled 1960 Screening for malignant [facility] Test 00:00:00 neoplasm of colon Medical Ce nter (procedure) [code = 981613842] Future Scheduled 1960 Screening for malignant [facility] Test 00:00:00 neoplasm of colon Medical Ce nter (procedure) [code = 404352241] Future Scheduled 1960 Screening for malignant [facility] Test 00:00:00 neoplasm of colon Medical Ce nter (procedure) [code = 584588329] Future Scheduled 1960 Screening for malignant [facility] Test 00:00:00 neoplasm of colon Medical Ce nter (procedure) [code = 968899300] Future Scheduled 1960 Sigmoidoscopy [code = [facility] Future Scheduled 1960 CT Colonography (combo) [facility] Test 00:00:00 [code = CT [facility] Encounters Start End Encounter Admission Attending Care Care Encounter Source Date/Time Date/Time Type Type Clinicians Facility Department ID 2022-07-31 2022-07-31 [facility] [id number] [place] 08:00:00 08:00:00 [facility] 2022-07-30 2022-07-30 [facility] [id number] [place] 17:30:00 17:30:00 [facility] 2021-04-09 2021-04-[address] [facility] [address] [facility] [id number] 07:10:00 13:23:00 Encounter [facility] 2021-04-09 2021-04-[address] [facility] Surgery [id number] [facility] 07:10:00 13:23:00 AKIN 2021-04-09 2021-04-09 Surgery Pierce [facility] [id number] 10:06:00 12:43:00 [facility] 2021-04-09 2021-04-09 Orders [facility] [id number] 00:00:00 00:00:00 [facility] 2021-04-06 2021-04-06 Office EL Akin Pelayo [facility] [id number] 11:30:00 11:45:00 Visit Justus Villatoro [facility] 2021-04-06 2021-04-06 Outpatient [facility] SLE [id number] [facility] 11:28:56 11:28:56 Results Test Description Test Time Test Comments [...] result as normal/abnormal. MPV (test code = 02620-3) 10.0 fL 9.4-12.4 nRBC (test code = [...] 2801) Lab Interpretation (test code Abnormal = 32370-5) [facility] [id number] 12:08:23 Test Item Value Reference Range Interpretation Comments WBC (test code = 6690-2) 11.9 See_Comment H [A utomated message] The system [employer] generated this result transmitted ref erence range: 3.5 - 10 .5 K/L. The refe rence range was not u sed to interpret this result as normal/abnor mal. RBC (test code = 789-8) 4.35 See_Comment L [Au tomated message] The system [employer] generated this result transmitted ref erence range: 4.63 - 6 .08 M/L. The refe rence range was not u sed to interpret this result as normal/abnor mal. MCHC (test code = 786-4) 33.9 See_Comment L [A utomated message] The system [employer] generated this result transmitted ref erence range: [...] See_Comment [Aut omated message] 777-3) The system [employer] generated this result transmitted ref erence range: 150 - 45 0 K/CU MM. The referen ce range was not u sed to interpret this result as normal/abnor mal. MPV (test code = 10.0 fL 9.4-12.4 83450-1) nRBC (test code = 413) 0 See_Comment [Aut omated message] The system [employer] generated this result transmitted ref erence range: [...] H [Aut omated message] 670) The system [employer] generated this result transmitted ref erence range: 1.78 - 5 .38 K/L. The refe rence range was not u sed to interpret this result as normal/abnor mal. # Lymphs (test code = 2.14 See_Comment [Auto mated message] 414) The system [employer] generated this result transmitted ref erence range: 1.32 - 3 .57 K/L. The refe rence range was not u sed to interpret this result as normal/abnor mal. # Monos (test code = 0.90 See_Comment H [Autom ated message] 415) The system [employer] generated this result transmitted ref erence range: 0.30 - 0 .82 K/L. The refe rence range was not u sed to interpret this result as normal/abnor mal. # Eos (test code = 416) 0.19 See_Comment [Au tomated message] The system [employer] generated this result transmitted ref erence range: 0.04 - 0 .54 K/L. The refe rence range was not u sed to interpret this result as normal/abnor mal. # Baso (test code = 417) 0.08 See_Comment [A utomated message] The system [employer] generated this result transmitted ref erence range: 0.01 - 0 .08 K/L. The refe rence range was not u sed to interpret this result as normal/abnor mal. Immature 1 % 0-1 Granulocytes-Relative (test code = 2801) Lab Interpretation (test Abnormal code = 25702-3) [facility] with platelet count + automated [id number] 12:08:23 Test Item Value Reference Range Interpretation Comments WBC (test code = 6690-2) 11.9 See_Comment H [A utomated message] The system [employer] generated this result transmitted ref erence range: 3.5 - 10 .5 K/L. The refe rence range was not u sed to interpret this result as normal/abnor mal. RBC (test code = 789-8) 4.35 See_Comment L [Au tomated message] The system [employer] generated this result transmitted ref erence range: 4.63 - 6 .08 M/L. The refe rence range was not u sed to interpret this result as normal/abnor mal. MCHC (test code = 786-4) 33.9 See_Comment L [A utomated message] The system [employer] generated this result transmitted ref erence range: [...] See_Comment [Aut omated message] 777-3) The system [employer] generated this result transmitted ref erence range: 150 - 45 0 K/CU MM. The referen ce range was not u sed to interpret this result as normal/abnor mal. MPV (test code = 10.0 fL 9.4-12.4 09405-6) nRBC (test code = 413) 0 See_Comment [Aut omated message] The system [employer] generated this result transmitted ref erence range: [...] H [Aut omated message] 670) The system [employer] generated this result transmitted ref erence range: 1.78 - 5 .38 K/L. The refe rence range was not u sed to interpret this result as normal/abnor mal. # Lymphs (test code = 2.14 See_Comment [Auto mated message] 414) The system [employer] generated this result transmitted ref erence range: 1.32 - 3 .57 K/L. The refe rence range was not u sed to interpret this result as normal/abnor mal. # Monos (test code = 0.90 See_Comment H [Autom ated message] 415) The system [employer] generated this result transmitted ref erence range: 0.30 - 0 .82 K/L. The refe rence range was not u sed to interpret this result as normal/abnor mal. # Eos (test code = 416) 0.19 See_Comment [Au tomated message] The system [employer] generated this result transmitted ref erence range: 0.04 - 0 .54 K/L. The refe rence range was not u sed to interpret this result as normal/abnor mal. # Baso (test code = 417) 0.08 See_Comment [A utomated message] The system [employer] generated this result transmitted ref erence range: 0.01 - 0 .08 K/L. The refe rence range was not u sed to interpret this result as normal/abnor mal. Immature 1 % 0-1 Granulocytes-Relative (test code = 2801) Lab Interpretation (test Abnormal code = 74638-3) [facility] with platelet count + automated [id number] 12:08:23 Test Item Value Reference Range Interpretation Comments WBC (test code = 6690-2) 11.9 See_Comment H [A utomated message] The system [employer] generated this result transmitted ref erence range: 3.5 - 10 .5 K/L. The refe rence range was not u sed to interpret this result as normal/abnor mal. RBC (test code = 789-8) 4.35 See_Comment L [Au tomated message] The system [employer] generated this result transmitted ref erence range: 4.63 - 6 .08 M/L. The refe rence range was not u sed to interpret this result as normal/abnor mal. MCHC (test code = 786-4) 33.9 See_Comment L [A utomated message] The system [employer] generated this result transmitted ref erence range: [...] See_Comment [Aut omated message] 777-3) The system [employer] generated this result transmitted ref erence range: 150 - 45 0 K/CU MM. The referen ce range was not u sed to interpret this result as normal/abnor mal. MPV (test code = 10.0 fL 9.4-12.4 84603-3) nRBC (test code = 413) 0 See_Comment [Aut omated message] The system [employer] generated this result transmitted ref erence range: [...] H [Aut omated message] 670) The system [employer] generated this result transmitted ref erence range: 1.78 - 5 .38 K/L. The refe rence range was not u sed to interpret this result as normal/abnor mal. # Lymphs (test code = 2.14 See_Comment [Auto mated message] 414) The system [employer] generated this result transmitted ref erence range: 1.32 - 3 .57 K/L. The refe rence range was not u sed to interpret this result as normal/abnor mal. # Monos (test code = 0.90 See_Comment H [Autom ated message] 415) The system [employer] generated this result transmitted ref erence range: 0.30 - 0 .82 K/L. The refe rence range was not u sed to interpret this result as normal/abnor mal. # Eos (test code = 416) 0.19 See_Comment [Au tomated message] The system [employer] generated this result transmitted ref erence range: 0.04 - 0 .54 K/L. The refe rence range was not u sed to interpret this result as normal/abnor mal. # Baso (test code = 417) 0.08 See_Comment [A utomated message] The system [employer] generated this result transmitted ref erence range: 0.01 - 0 .08 K/L. The refe rence range was not u sed to interpret this result as normal/abnor mal. Immature 1 % 0-1 Granulocytes-Relative (test code = 2801) Lab Interpretation (test Abnormal code = 91951-4) [facility] W/PLT COUNT & AUTO [id number] 12:08:23 Test Item Value Reference Range Interpretation [...] (test code = 2801) Type and screen, [id number] 08:57:00 Test Item Value Reference Range Interpretation Comments ABO/RH AUTOMATED (BEAKER) (test AB POSITIVE code = 2260) Ab Scrn (test code = 890-4) [facility] [id number] 08:57:00 Test Item Value Reference Range Interpretation Comments ABO/RH AUTOMATED (BEAKER) (test AB POSITIVE code = 2260) Ab Scrn (test code = 890-4) [facility], [id number] 08:57:00 Test Item Value Reference Range Interpretation Comments ABO/RH AUTOMATED (BEAKER) (test AB POSITIVE code = 2260) Ab Scrn (test code = 890-4) [facility], [id number] 08:57:00 Test Item Value Reference Range Interpretation Comments ABO/RH AUTOMATED (BEAKER) (test AB POSITIVE code = 2260) Ab Scrn (test code = 890-4) [facility] [id number] 08:40:00 Test Item Value Reference Range Interpretation Comments ABO Grouping (test code = 2588) AB Rh Factor (test code = 2589) [facility] [id number] 08:40:00 Test Item Value Reference Range Interpretation Comments ABO Grouping (test code = 2588) AB Rh Factor (test code = 2589) [facility] [id number] 08:40:00 Test Item Value Reference Range Interpretation Comments ABO Grouping (test code = 2588) AB Rh Factor (test code = 2589) [facility] [id number] 08:40:00 Test Item Value Reference Range Interpretation Comments ABO Grouping (test code = 2588) AB Rh Factor (test code = 2589) [facility])2021-04-06 21:11:35 Test Item Value Reference Range Interpretation Comments SARS-COV2/RT-PCR (test Negative Negative code = 08325-7) WENDY (test code = WENDY) Negative result [...] Healthcare Providers:https://www.lauren shaver/sky/RT SARS-CoV-2 HCP Fact Sheet 51-636533.pdf Fact Sheet for Healthcare Patients:https://www.mo lewisroque/sky/RT SARS-CoV-2 Patient Fact Sheet EN 51-865515T5.pdf Lab Interpretation Normal (test code = 32753-6) [facility])2021-04-06 21:11:35 Test Item Value Reference Range Interpretation Comments SARS-COV2/RT-PCR (test Negative Negative code = 96839-4) WENDY (test code = WENDY) Negative result [...] the Act. Testing was performed using the [employer] SARS-CoV-2 assay. Fact Sheet for Healthcare Providers:https://www.lauren lloydroque/sky/RT SARS-CoV-2 HCP Fact Sheet 51-191612.pdf Fact Sheet for Healthcare Patients:https://www.mo lewisMDLIVE/sky/RT SARS-CoV-2 Patient Fact Sheet EN 51-367152E8.pdf Lab Interpretation Normal (test code = 21512-6) [facility])2021-04-06 21:11:35 Test Item Value Reference Range Interpretation Comments SARS-COV2/RT-PCR (test Negative Negative code = 21984-7) WENDY (test code = WENDY) Negative result [...] SARS-CoV-2 assay. Fact Sheet for Healthcare Providers:https://www.lauren lloydroque/sky/RT SARS-CoV-2 HCP Fact Sheet 51-393164.pdf Fact Sheet for Healthcare Patients:https://www.mo lewisroque/sky/RT SARS-CoV-2 Patient Fact Sheet EN 51-106920R6.pdf Lab Interpretation Normal (test code = 83074-6) [facility])2021-04-06 21:11:35 Test Item Value Reference Range Interpretation Comments SARS-COV2/RT-PCR (test Negative Negative code = 87554-8) WENDY (test code = WENDY) Negative result [...] SARS-CoV-2 assay. Fact Sheet for Healthcare Providers:https://www.lauren lloydroque/sky/RT SARS-CoV-2 HCP Fact Sheet 51-385083.pdf Fact Sheet for Healthcare Patients:https://www.mo lewisMDLIVE/sky/RT SARS-CoV-2 Patient Fact Sheet EN 51-712086S9.pdf Lab Interpretation Normal (test code = 69031-2) [facility])2021-04-06 21:11:35 Test Item Value Reference Range Interpretation Comments SARS-COV2/RT-PCR (test code = Negative Negative 5148898) Negative result for this test determines that [...] 564(g) of the Act.Testing was performed using [employer] SARS-CoV-2 assay.Fact Sheet for Healthcare Providers:https://www.Wetpaint.MDLIVE/sky/RT SARS-CoV-2 HCP Fact Sheet 51- 731183.pdfFact Sheet for Healthcare Patients:https://www.Wetpaint.MDLIVE/sky/RT SARS-CoV-2 Patient Fact Sheet EN 51-938755V6.pdfBASI METABOLIC [id number] 13:13:54 Test Item Value Reference Range Interpretation [...] S NOT APPLICABLE FOR DIALYSIS PATIEN TS. Deli Manager ID - MANOJ [facility] W/PLT COUNT & AUTO [id number] 12:49:02 Test Item Value Reference Range Interpretation [...] % 0-1 PERCENT (BEAKER) (test code = 2651)
[2023-01-16] MEDS ORDERED: DIPHENHYDRAMINE 50 MG/ML VIAL ONE (06:22)
[2023-01-16] MEDS ORDERED: METOCLOPRAMIDE 10 MG/2mL INJ ONE (06:23)
[2023-01-16 06:30] LABS: Hematocrit 45.1 % (39.6-49.0); Lymphocytes % 21.3 % (15.3-44.8); MCV 91.8 fL (80-100); MPV 8.4 fL (7.6-11.3); Platelets 248 thou/uL (152-406); RBC Red Blood Cell Count 4.91 M/uL (4.33-5.43)
[2023-01-16 06:46] LABS: Potassium 3.8 mEq/L (3.5-5.1); Troponin High Sensitivity 5.7 pg/mL (<58.9)
[2023-01-16 06:54] LABS: Protime INR 0.96
--- NOTE | 2023-01-16 07:30 | RAD REPORT ---
EXAM DESCRIPTION: CT - Head Brain Wo Cont - 01/16/2023 7:03 am CLINICAL HISTORY: Dizziness COMPARISON: None TECHNIQUE: Computed axial tomography of the head was obtained. IV contrast was not requested. All CT scans are performed using dose optimization technique as appropriate and may include automated exposure control or mA/KV adjustment according to patient size. FINDINGS: An intracranial bleed is not seen The ventricles are normal in caliber No extra-axial fluid collection is noted. Mild cerebellar vermis Mildlow-density areas within periventricular, deep and subcortical white matter likely represent isch emic changes secondary to small vessel disease. Fluid within the sinuses/ mastoids is not seen. IMPRESSION: No acute intracranial abnormality is seen If patient's symptoms persist MRI of the brain would be recommended
--- NOTE | 2023-01-16 07:41 | RAD REPORT ---
EXAM DESCRIPTION: Margret Angio01/16/2023 7:04 am CLINICAL HISTORY: Dizziness COMPARISON: None TECHNIQUE: 100 cc Isovue [address] angiogram of the neck was obtained. 3D MIPS reconstruction performed. All CT scans are performed using dose optimization technique as appropriate and may include automated exposure control or mA/KV adjustment according to patient size. FINDINGS: Moderate plaque left carotid bulb. Mild plaque right carotid bulb, bilateral internal carotid and external carotid arteries. Mild plaque vertebral arteries No dissection is seen. IMPRESSION: Moderate plaque left carotid bulb resulting in an approximately 50% stenosis [place] crieria Mild stenosis 0 to 49 % Moderate stenosis 50-69% Severe stenosis 70-99%
--- NOTE | 2023-01-16 07:41 | RAD REPORT ---
EXAM DESCRIPTION: CTHead angio01/16/2023 7:03 am CLINICAL HISTORY: Dizziness COMPARISON: None TECHNIQUE: 100 cc Isovue [address] angiogram of the head was obtained. 3D MIPS reconstruction performed. All CT scans are performed using dose optimization technique as appropriate and may include automated exposure control or mA/KV adjustment according to patient size. FINDINGS: 2 millimeter aneurysm extends off anterior distal aspect right internal carotid artery. Mild plaque distal internal carotid arteries. origin posterior cerebral arteries Anterior cerebral, middle cerebral, basilar and posterior cerebral arteries unremarkable A significant stenosis is not noted. 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
[2023-01-16] MEDS ORDERED: ASPIRIN 81 MG CHEWABLE TABLET ONE (07:53)
[2023-01-16] MEDS ORDERED: FOLIC ACID 5 MG/ML VIAL ONE (08:01)
--- NOTE | 2023-01-16 08:10 | ER ---
Nurse's Notes [facility] Name: Casper Elena Age: 62 yrs Sex: Male : 1960 Arrival Date: 01/16/2023 Time: 05:04 Bed 7 Private MD: Diagnosis: Dizziness and giddiness;Other peripheral vertigo, bilateral-intractable;Tobacco abuse counseling;Tobacco use;Occlusion and stenosis of left carotid artery-50 % Presentation: 01/16 05:18 Chief complaint: Patient states: dizziness that has been going on for about a month but as6 usually goes away but this morning it got worse and did not go away. c/o "head pressure". Coronavirus screen: At this time, the client does not indicate any symptoms associated with coronavirus-19. Ebola Screen: No symptoms or risks identified at this time. Initial Sepsis Screen: Does the patient meet any 2 criteria? No. Patient's initial sepsis screen is negative. Does the patient have a suspected source of infection? No. Patient's initial sepsis screen is negative. Risk Assessment: Do you want to hurt yourself or someone else? Patient reports no desire to harm self or others. Onset of symptoms was January 16, 2023. 05:18 Acuity: ANDREW 3 as6 05:18 Method Of Arrival: Ambulatory as6 Triage Assessment: 10:41 Pain: Pain Also complains of. tm6 Historical: - Allergies: 05:20 Codeine; as6 - PMHx: 05:20 CVA; Myocardial infarction; as6 - PSHx: 05:20 heart stent; as6 - Immunization history:: Adult Immunizations not up to date. - Social history:: Smoking status: Patient reports the use of cigarette tobacco products, smokes one pack cigarettes per day. Screenin:14 [facility] ED Fall Risk Assessment (Adult) History of falling in the last 3 months, nw1 including since admission No falls in past 3 months (0 pts) Confusion or Disorientation Yes (5 pts) Intoxicated or Sedated No (0 pts) Impaired Gait No (0 pts) Mobility Assist Device Used No (0 pt) Altered Elimination No (0 pt) Score/Fall Risk Level 3 or more points = High Risk Oriented to surroundings, Maintained a safe environment, Educated pt \\T\\ family on fall prevention, incl call for assistance when getting out of bed, Assessed \\T\\ reinforced patient's understanding of fall precautions, Provided non-skid footwear, Hourly rounding (assess needs \\T\\ fall precautionary measures) done. Abuse screen: Denies threats or abuse. Denies injuries from another. Nutritional screening: No deficits noted. Tuberculosis screening: No symptoms or risk factors identified. Assessment: 06:14 Pain: Denies pain. Neuro: Reports dizziness, since 1 month. nw1 06:17 General: Appears in no apparent distress. Behavior is calm, cooperative, appropriate nw1 for age. Cardiovascular: No deficits noted. Denies chest pain. Respiratory: No deficits noted. Denies cough, shortness of breath labored breathing, pain with respiration, pain with cough, pain with movement, air hunger. GI: No deficits noted. No signs and/or symptoms were reported involving the gastrointestinal system. : No deficits noted. No signs and/or symptoms were reported regarding the genitourinary system. Derm: No deficits noted. No signs and/or symptoms reported regarding the dermatologic system. Musculoskeletal: No deficits noted. No signs and/or symptoms reported regarding the musculoskeletal system. 06:36 Reassessment: Patient and/or family updated on plan of care and expected duration. Pain nw1 level reassessed. Blue top sent to lab via tubing system. 06:55 Reassessment: Pt to CT via stretcher and auto tech at this time. 0 s/s of acute distress nw1 noted at this time. in room waiting. 07:32 Reassessment: Patient appears in no apparent distress at this time. Patient and/or tm6 family updated on plan of care and expected duration. Pain level reassessed. Neuro: Reports dizziness. 08:28 Reassessment: Patient appears in no apparent distress at this time. Patient and/or tm6 family updated on plan of care and expected duration. Pain level reassessed. Patient is alert, oriented x 3, equal unlabored respirations, skin warm/dry/pink. 09:05 Reassessment: Patient states symptoms have improved. Patient states he feels slightly tm6 less dizzy. 09:40 Reassessment: Patient appears in no apparent distress at this time. patient sleeping. tm6 10:40 Reassessment: patient in MRI. tm6 Vital Signs: 05:18 BP 132 / 92; Pulse 66; Resp 18 S; Temp 97.6(TE); Pulse Ox 97% on R/A; Weight 74.84 kg as6 (R); Height 5 ft. 10 in. (R); Pain 2/10; 06:14 BP 150 / 85; Pulse 54; Resp 15; Pulse Ox 99% ; nw1 06:54 BP 149 / 75; Pulse 52; Resp 16; Pulse Ox 98% on R/A; nw1 07:21 BP 155 / 88; Pulse 51; Resp 15; Pulse Ox 97% ; tm6 07:56 BP 145 / 85; Pulse 58; Pulse Ox 99% on R/A; tm6 08:28 BP 125 / 115; Pulse 57; Resp 16; Pulse Ox 96% ; tm6 09:03 BP 138 / 86; Pulse 55; Resp 13; Pulse Ox 94% on R/A; tm6 09:41 BP 145 / 83; Pulse 51; Resp 13; Pulse Ox 98% on R/A; tm6 05:18 Body Mass Index 23.67 (74.84 kg, 177.8 cm) as6 05:18 Pain Scale: Adult as6 [place] Coma Score: 06:14 Eye Response: spontaneous(4). Motor Response: obeys commands(6). Verbal Response: nw1 oriented(5). Total: 15. 08:11 Eye Response: spontaneous(4). Motor Response: obeys commands(6). Verbal Response: thuy oriented(5). Total: 15. ED Course: 05:07 Patient arrived in ED. jj6 05:11 Hai Franco MD is Attending Physician. ec2 05:20 Triage completed. as6 05:20 Arm band placed on. as6 05:38 Marie De Jesus, RN is Primary Nurse. nw1 06:07 Basic Metabolic Panel Sent. nw1 06:07 CBC with Diff Sent. nw1 06:07 Troponin HS Sent. nw1 06:14 Patient has correct armband on for positive identification. Placed in gown. Bed in low nw1 position. Call light in reach. Side rails up X2. Adult w/ patient. Provided Education on: POC. 06:14 No provider procedures requiring assistance completed. Inserted saline lock: 20 gauge nw1 in right forearm, using aseptic technique. Blood collected. 06:37 Ptt, Activated Sent. nw1 06:37 Protime (+inr) Sent. nw1 06:37 Troponin HS Sent. nw1 06:37 Basic Metabolic Panel Sent. nw1 07:05 CT Head Brain wo Cont In Process Unspecified. EDMS 07:05 CT Head Angio In Process Unspecified. EDMS 07:05 CT Neck Angio In Process Unspecified. EDMS 07:23 Attending Physician role handed off by Hai Franco MD thuy 07:23 Horacio Castaneda MD is Attending Physician. thuy 08:08 Arcadio Perdue is Hospitalizing Provider. thuy 08:20 Kaushal Emery MD is Hospitalizing Provider. thuy 10:41 Patient admitted, IV remains in place. tm6 Administered Medications: 06:07 Drug: NS 0.9% IV 1000 ml IV at 1 bolus Per protocol; 1000 mL bolus Route: IV; Rate: 1 nw1 bolus; Site: left forearm; 07:34 Follow up: Response: No adverse reaction; IV Intake: 1000ml tm6 06:13 Drug: metoCLOPramide IVP 10 mg IVP once; over 1 to 2 minutes Route: IVP; Site: right nw1 forearm; 06:13 Drug: diphenhydrAMINE IVP 12.5 mg IVP once Route: IVP; Site: right forearm; nw1 07:52 Drug: foLIC Acid IVPB 1 mg IVPB once Route: IVPB; Site: right forearm; tm6 09:06 Follow up: Response: No adverse reaction tm6 07:52 Drug: Aspirin PO Chewable Tablet 324 mg PO once; 81 mg tablets x 4 Route: PO; tm6 08:27 Drug: Meclizine PO 25 mg PO once Route: PO; tm6 09:05 Follow up: Response: Marked relief of symptoms tm6 Medication: 06:14 VIS not applicable for this client. nw1 Intake: 07:34 IV: 1000ml; Total: 1000ml. tm6 Outcome: 08:09 Decision to Hospitalize by Provider. thuy 10:40 Admitted to Tele accompanied by tech, via wheelchair, room 413, Report called to Kylie isaacs RN 10:40 Condition: stable 10:40 Instructed on the need for admit, 10:41 Patient left the ED. tm6 Signatures: Dispatcher [employer] Horacio Ray MD MD cha Jeffries, Jennifer jj6 Alan Muhammad RN RN as6 Hai Franco MD MD ec2 Masterson Tawney, RADHA RN tm6 Marie De Jesus, RADHA RN nw1
--- NOTE | 2023-01-16 08:10 | EDPHYS ---
Physician Documentation [facility] Name: Casper Elena Age: 62 yrs Sex: Male : 1960 Arrival Date: 01/16/2023 Time: 05:04 Bed 7 Private MD: ED Physician Horacio Castaneda HPI: 01/16 05:39 This 62 yrs old Male presents to ER via Ambulatory with complaints of ec2 Headache, Dizziness. 05:39 Patient arrives today for evaluation of vertiginous symptoms. States that he has been ec2 experiencing vertigo symptoms for the past 1 month. States that it happens regularly when he has certain positional head movements. Patient reports occasional nausea and occasional headache associated with this. Denies any vomiting, denies any head strikes. Reports a history of previous CAD as well as peripheral vascular disease, is currently on anticoagulant. Denies any chest pain or shortness of breath. Reports that he recently was evaluated with a ultrasound of the carotids which he reports is normal, states this occurred several months ago however is unclear which one specifically.. Historical: - Allergies: 05:20 Codeine; as6 - PMHx: 05:20 CVA; Myocardial infarction; as6 - PSHx: 05:20 heart stent; as6 - Immunization history:: Adult Immunizations not up to date. - Social history:: Smoking status: Patient reports the use of cigarette tobacco products, smokes one pack cigarettes per day. ROS: 05:39 Constitutional: as per hpi ec2 08:11 Eyes: Negative for injury, pain, redness, and discharge, ENT: Negative for injury, thuy pain, and discharge, Neck: Negative for injury, pain, and swelling, Cardiovascular: Negative for chest pain, palpitations, and edema, Respiratory: Negative for shortness of breath, cough, wheezing, and pleuritic chest pain, Abdomen/GI: Negative for abdominal pain, nausea, vomiting, diarrhea, and constipation, Back: Negative for injury and pain, : Negative for injury, bleeding, discharge, and swelling, MS/Extremity: Negative for injury and deformity, Skin: Negative for injury, rash, and discoloration, Psych: Negative for depression, anxiety, suicide ideation, homicidal ideation, and hallucinations, Allergy/Immunology: Negative for hives, rash, and allergies, Endocrine: Negative for neck swelling, polydipsia, polyuria, polyphagia, and marked weight changes, Hematologic/Lymphatic: Negative for swollen nodes, abnormal bleeding, and unusual bruising, 08:11 Neuro: Positive for dizziness, Exam: 05:39 Constitutional: GEN: NAD Head: atraumatic Eyes: EOMI Ears: External ears are ec2 normal. CV: regular rate LUNGS: no respiratory distress ABD: non-distended SKIN: no evidence of rashes MSK: no evidence of trauma NEURO: moves all extremities equally, cranial nerves II through XII intact, strength intact in all 4 extremities, normal [id number], no truncal instability, negative hints exam. 08:11 ECG was reviewed by the Attending Physician. [facility] Vital Signs: 05:18 BP 132 / 92; Pulse 66; Resp 18 S; Temp 97.6(TE); Pulse Ox 97% on R/A; Weight 74.84 kg as6 (R); Height 5 ft. 10 in. (R); Pain 2/10; 06:14 BP 150 / 85; Pulse 54; Resp 15; Pulse Ox 99% ; nw1 06:54 BP 149 / 75; Pulse 52; Resp 16; Pulse Ox 98% on R/A; nw1 07:21 BP 155 / 88; Pulse 51; Resp 15; Pulse Ox 97% ; tm6 07:56 BP 145 / 85; Pulse 58; Pulse Ox 99% on R/A; tm6 08:28 BP 125 / 115; Pulse 57; Resp 16; Pulse Ox 96% ; tm6 09:03 BP 138 / 86; Pulse 55; Resp 13; Pulse Ox 94% on R/A; tm6 09:41 BP 145 / 83; Pulse 51; Resp 13; Pulse Ox 98% on R/A; tm6 05:18 Body Mass Index 23.67 (74.84 kg, 177.8 cm) as6 05:18 Pain Scale: Adult as6 [place] Coma Score: 06:14 Eye Response: spontaneous(4). Motor Response: obeys commands(6). Verbal Response: nw1 oriented(5). Total: 15. 08:11 Eye Response: spontaneous(4). Motor Response: obeys commands(6). Verbal Response: thuy oriented(5). Total: 15. MDM: 05:20 Patient medically screened. ec2 05:39 Data reviewed: vital signs. ED course: Patient arrives today for evaluation of vertigo. ec2 Examination remarkable for well-appearing nontoxic individual with intact neurologic exam. Will obtain lab work, EKG, will treat the patient's symptoms and reassess the patient. Currently considering process such as peripheral vertigo, lower suspicion for central vertigo given the symptoms and the reproducibility with head movements. Additionally considered other process such as anemia, electrolyte disturbances, arrhythmia. . 06:22 ED course: EKG independently reviewed and interpreted by me, shows normal sinus rhythm, ec2 rate of 54, no acute ST segment elevations, nonconcerning intervals.. 06:30 ED course: Patient remains with persistent symptoms. Will obtain CT scan of the head as ec2 well as CT angio head and neck. Anticipate admission to the hospital for MRI and neurology evaluation. Patient remains with no focal neurodeficits. Patient is not in any stroke window given the symptoms been intermittently ongoing for greater than 1 month. . 01/16 05:29 Order name: Basic Metabolic Panel; Complete Time: 07:33 ec2 01/16 05:29 Order name: CBC with Diff; Complete Time: 07:33 ec2 01/16 05:29 Order name: Troponin HS; Complete Time: 07:33 ec2 01/16 06:30 Order name: Protime (+inr); Complete Time: 07:33 ec2 01/16 06:30 Order name: Ptt, Activated; Complete Time: 07:33 ec2 01/16 08:13 Order name: Lipid Profile [facility] 01/16 10:14 Order name: Basic Metabolic Panel [facility] 01/16 10:14 Order name: Hemoglobin A1c [facility] 01/16 10:14 Order name: Magnesium [facility] 01/16 10:14 Order name: NT PRO-BNP [facility] 01/16 10:14 Order name: Phosphorus [facility] 01/16 10:14 Order name: T4 Free [facility] 01/16 10:14 Order name: Thyroid Stimulating Hormone [facility] 01/16 10:14 Order name: Urinalysis w/ reflexes [facility] 01/16 10:14 Order name: CBC with Automated Diff [facility] 01/16 10:14 Order name: CBC with Automated Diff [facility] 01/16 10:14 Order name: Lipid Profile [facility] 01/16 10:14 Order name: Lipid Profile [facility] 01/16 06:30 Order name: CT Head Brain wo Cont; Complete Time: 07:33 ec2 01/16 06:30 Order name: CT Head Angio; Complete Time: 07:52 ec2 01/16 06:30 Order name: CT Neck Angio; Complete Time: 07:52 ec2 01/16 07:33 Order name: MRI Stroke Protocol [facility] 01/16 07:36 Order name: Brain Wo Cont [facility] 01/16 10:10 Order name: ERT ORTHOSTATIC V/S [facility] 01/16 10:10 Order name: ERT ORTHOSTATIC V/S [facility] 01/16 10:10 Order name: ERT ORTHOSTATIC V/S [facility] 01/16 10:10 Order name: ERT ORTHOSTATIC V/S [facility] 01/16 10:11 Order name: Echo with Doppler [facility] 01/16 05:29 Order name: EKG; Complete Time: 05:29 ec2 01/16 10:07 Order name: CONS Physician Consult [facility] 01/16 05:29 Order name: Cardiac monitoring; Complete Time: 06:07 ec2 01/16 05:29 Order name: EKG - Nurse/Tech; Complete Time: 06:37 ec2 01/16 05:29 Order name: IV Saline Lock; Complete Time: 06:07 ec2 01/16 05:29 Order name: Labs collected and sent; Complete Time: 06:07 ec2 01/16 05:29 Order name: O2 Per Protocol; Complete Time: 06:07 ec2 01/16 05:29 Order name: O2 Sat Monitoring; Complete Time: 06:07 ec2 EC:11 Rate is 54 beats/min. Rhythm is regular. QRS [place] is Normal. MI interval is normal. QRS thuy interval is normal. QT interval is normal. No Q waves. T waves are Normal. No ST changes noted. Clinical impression: Sinus bradycardia. Interpreted by me. Reviewed by me. Administered Medications: 06:07 Drug: NS 0.9% IV 1000 ml IV at 1 bolus Per protocol; 1000 mL bolus Route: IV; Rate: 1 nw1 bolus; Site: left forearm; 07:34 Follow up: Response: No adverse reaction; IV Intake: 1000ml tm6 06:13 Drug: metoCLOPramide IVP 10 mg IVP once; over 1 to 2 minutes Route: IVP; Site: right nw1 forearm; 06:13 Drug: diphenhydrAMINE IVP 12.5 mg IVP once Route: IVP; Site: right forearm; nw1 07:52 Drug: foLIC Acid IVPB 1 mg IVPB once Route: IVPB; Site: right forearm; tm6 09:06 Follow up: Response: No adverse reaction tm6 07:52 Drug: Aspirin PO Chewable Tablet 324 mg PO once; 81 mg tablets x 4 Route: PO; tm6 08:27 Drug: Meclizine PO 25 mg PO once Route: PO; tm6 09:05 Follow up: Response: Marked relief of symptoms tm6 Disposition Summary: 01/16/23 08:09 Hospitalization Ordered Notes: Hospitalization Status: Observation thuy Location: Telemetry/MedSurg (observation) thuy Condition: Fair thuy Problem: new thuy Symptoms: have improved thuy Bed/Room Type: Standard thuy Provider: Kaushal Emery(01/16/23 08:20) thuy Room Assignment: [facility](01/16/23 10:16) iw Diagnosis - Dizziness and giddiness thuy - Other peripheral vertigo, bilateral - intractable thuy - Tobacco abuse counseling thuy - Tobacco use thuy - Occlusion and stenosis of left carotid artery - 50 % thuy Forms: - Medication Reconciliation Form thuy - SBAR form thuy - Leadership Thank You Letter thuy Signatures: Dispatcher [employer] Horacio Ray MD MD cha Williams, Irene, RN RN iw Alan Muhammad RN RN as6 Hai Franco MD MD 2 Chantale Balderas RN RN tm6 Marie De Jesus RN RN nw1 Corrections: (The following items were deleted from the chart) 08:20 08:09 Arcadio Perdue cha [facility] 10:16 08:09 thuy
[2023-01-16] MEDS ORDERED: MECLIZINE HCL 12.5 MG TAB ONE (08:39)
[2023-01-16] MEDS ORDERED: ACETAMINOPHEN 325 MG TABLET PO PRN (10:05)
[2023-01-16] MEDS ORDERED: TRAMADOL HCL 50 MG TAB PO PRN (10:05)
[2023-01-16] MEDS ORDERED: ONDANSETRON 4 MG/2 ML VIAL IV PRN (10:12)
--- NOTE | 2023-01-16 10:13 | P.HP ---
Certification for Inpatient Patient admitted to: Observation With expected LOS: <2 Midnights Patient will require the following post-hospital care: None Practitioner: I am a practitioner with admitting privileges, knowledge of patient current condition, hospital course, and medical plan of care. Services: Services provided to patient in accordance with Admission requirements found in Title 42 Section 412.3 of the Code of Federal Regulations Patient History Date of Service: 01/16/23 Reason for admission: Dizziness and vertigo History of Present Illness: Patient is a 62-year-old male with a past medical history significant for CAD, NM, CVA, nicotine dependence who presents with complaint of periodic dizziness and vertigo that has been ongoing for the past 1 month. Patient reports that he experiences symptoms when he gets up in the morning or sometimes when he moves his head. Patient reported associated signs and symptoms of headache and nausea. Patient denies any other signs and symptoms. Symptoms are aggravated or relieved by nothing. Patient decided to present to the hospital for medical evaluation. Allergies codeine Allergy (Verified 01/16/23 19:39) Itching/Hives/Rash Home Medications: Aspirin 81 mg PO DAILY 01/16/23 Atorvastatin Calcium 40 mg PO DAILY 01/16/23 Clopidogrel Bisulfate [Plavix] 75 mg PO DAILY 01/16/23 [place]-3 Fatty Acids [[place]-3] 1,000 mg PO DAILY 01/16/23 Zinc Gluconate [Zinc] 50 mg PO DAILY 01/16/23 - Past Medical/Surgical History -: CVA -: CAD -: HLD -: NM -: Cardiac stent placement - Social History Smoking Status: Current every day smoker Counseled patient to stop smoking for: less than 10 minutes Smoking therapy provided: Yes Patient receptive to therapy: No Alcohol use: No CD- Drugs: No Caffeine use: No Place of Residence: Home Review of Systems General: Unremarkable Eyes: Unremarkable ENT: Unremarkable Respiratory: Unremarkable Cardiovascular: Unremarkable Gastrointestinal: Nausea Genitourinary: Unremarkable Musculoskeletal: Unremarkable Integumentary: Unremarkable Neurological: Other (vertigo, dizziness, CHAVEZ) Lymphatics: Unremarkable Physical Examination - Physical Exam General: Alert, In no apparent distress, Oriented x3, Cooperative HEENT: Atraumatic, PERRLA, Mucous membr. moist/pink, EOMI, Sclerae nonicteric Neck: Supple, 2+ carotid pulse no bruit, No LAD, Without JVD or thyroid abnormality Respiratory: Clear to auscultation bilaterally, Normal air movement Cardiovascular: No edema, Regular rate/rhythm, Normal S1 S2 Capillary refill: <2 Seconds Gastrointestinal: Normal bowel sounds, No tenderness Musculoskeletal: No clubbing, No swelling, No tenderness Integumentary: No rashes, No significant lesion, No tenderness/swelling Neurological: Normal gait, Normal speech, Normal strength at 5/5 x4 extr, Normal tone, Normal affect Lymphatics: No axilla or inguinal lymphadenopathy External genitalia: No edema - Studies Laboratory Data (last 24 hrs) 01/16/23 01/16/23 01/16/23 08:23 06:04 06:04 WBC 9.20 Hgb 15.9 Hct 45.1 Plt Count 248 PT 10.6 INR 0.96 APTT 30.7 Sodium Potassium BUN Creatinine Glucose Triglycerides 186 H Cholesterol 178 HDL Cholesterol 43 Cholesterol/HDL Ratio 4.14 01/16/23 06:04 WBC Hgb Hct Plt Count PT INR APTT Sodium 139 Potassium 3.8 BUN 19 H Creatinine 0.94 Glucose 119 H Triglycerides Cholesterol HDL Cholesterol Cholesterol/HDL Ratio Assessment and Plan - Plan --Dizziness and vertigo. MRI brain unremarkable for any acute intracranial abno rmality. 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 Neurology consulted. Continue with meclizine as needed. Fall precautions. Will await further recommendation from neurologist. --Hyperlipidemia. Continue statin. --History of CAD\\NM\\CVA. Continue aspirin, Plavix and statin. --Nicotine dependence. Patient counseled on tobacco cessation. Refuses nicotine patch. --CHAVEZ. Tylenol prn --DVT prophylaxis Lovenox subQ Discharge Plan: Home Plan to discharge in: 48 Hours - Advance Directives Does patient have a Living Will: No Does patient have a Durable POA for Healthcare: No - Code Status/Comfort Care Code Status Assessed: Yes Physician Review: Patient Assessed, Agree with Above Assessment and Plan Critical Care: No
--- NOTE | 2023-01-16 10:56 | RAD REPORT ---
EXAM DESCRIPTION: MRI - Brain Wo Cont - 01/16/2023 10:47 am CLINICAL HISTORY: TIA/dizziness COMPARISON: Head CT January 16, 2023 TECHNIQUE: Axial, sagittal, and coronal magnetic resonance images of the brain were obtained. FINDINGS: Mild signal within periventricular, deep and subcortical white matter probably ischemic ch anges secondary to small vessel disease Diffusion-weighted/ADC mapping does not reveal evidence of acute infarction. The ventricles are normal caliber. An extra-axial fluid collection is not noted. Fluid within the sinuses/mastoids is not seen IMPRESSION: No acute intracranial abnormality noted
[2023-01-16] MEDS: ASPIRIN 81 MG CHEWABLE TABLET PO SCH (11:00)
[2023-01-16 11:28] VITALS: BMI 23.6
[2023-01-16] MEDS ORDERED: FENTANYL CITR 100 MCG/2 ML ONE (11:49)
[2023-01-16] MEDS ORDERED: NA CHLORIDE 0.9% 1,000 ML ONE (11:49)
[2023-01-16] MEDS ORDERED: ONDANSETRON 4 MG/2 ML VIAL ONE (11:49)
[2023-01-16 15:35] LABS: Magnesium 1.9 mg/dL (1.6-2.4); Phosphorus 2.7 mg/dL (2.5-4.9); Potassium 3.8 mEq/L (3.5-5.1); Thyroid Stimulating Hormone 0.856 uIU/mL (0.358-3.740)
[2023-01-16] MEDS ORDERED: ENOXAPARIN 40 MG/0.4 ML SQ SCH (17:00)
[2023-01-16 18:15] LABS: Specific Gravity > 1.030 (1.005-1.030); Urine Bilirubin NEGATIVE (Negative); Urine Blood Negative (Negative); Urine Clarity Clear (Clear); Urine Color Light-Yellow (Yellow); Urine Glucose NEGATIVE (Negative); Urine Protein NEGATIVE (Negative); Urine Urobilinogen Normal (Normal); Urine pH 7.5 (5.0-7.0)
[2023-01-16] MEDS ORDERED: ATORVASTATIN 40 MG TAB PO SCH (21:00)
[2023-01-16 21:10] VITALS: O2SAT 95
[2023-01-17] MEDS ORDERED: MECLIZINE HCL 12.5 MG TAB PO PRN (02:13)
[2023-01-17 05:01] LABS: Lymphocytes % 29.8 % (15.3-44.8); MCV 91.9 fL (80-100); MPV 7.9 fL (7.6-11.3); Platelets 239 thou/uL (152-406); RBC Red Blood Cell Count 4.46 M/uL (4.33-5.43)
[2023-01-17] MEDS ORDERED: ATORVASTATIN 40 MG TAB PO SCH (09:00)
[2023-01-17] MEDS ORDERED: CLOPIDOGREL 75 MG TABLET PO SCH (09:00)
[2023-01-17] MEDS ORDERED: ZINC SULFATE 220 MG CAP PO SCH (09:00)
[2023-01-17] MEDS: ASPIRIN 81 MG CHEWABLE TABLET PO SCH (09:02)
[2023-01-17 10:50] VITALS: BP 148/80; TEMP 97.1
--- NOTE | 2023-01-17 12:16 | P.DS ---
Admission Date: 01/16/23 Discharge Date: 01/17/23 Disposition: ROUTINE DISCHARGE Discharge Condition: GOOD Reason for Admission: Dizziness and vertigo Brief History of Present Illness: Patient is a 62-year-old male with a past medical history significant for CAD, PA, CVA, nicotine dependence who presents with complaint of periodic dizziness and vertigo that has been ongoing for the past 1 month. Patient reports that he experiences symptoms when he gets up in the morning or sometimes when he moves his head. Patient reported associated signs and symptoms of headache and nausea. Patient denies any other signs and symptoms. Symptoms are aggravated or relieved by nothing. Patient decided to present to the hospital for medical evaluation. Hospital Course: Patient was evaluated for possible intracranial pathology and none was found. CTA of the neck showed 50% stenosis in the left carotid artery. 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 It was admitted was given overnight with significant relief of dizzy spells. We will have him on dose of meclizine for couple of days and also as needed Benadryl at night for the congestion. He will follow-up with his primary care doctor within a week or 2 for review posthospital discharge. Vital Signs/Physical Exam: Temp Pulse Resp BP Pulse Ox 97.1 F 60 14 148/80 H 97 01/17/23 08:00 01/17/23 08:00 01/17/23 08:00 01/17/23 08:00 01/17/23 08:00 General: Alert, Oriented x3 HEENT: Atraumatic, Normocephalic Neck: Supple Respiratory: Normal air movement Cardiovascular: Regular rate/rhythm, Normal S1 S2 Gastrointestinal: Soft and benign Musculoskeletal: No swelling Neurological: Normal speech, Normal strength at 5/5 x4 extr Laboratory Data at Discharge: WBC 10.00 thou/uL (4.3-10.9) 01/17/23 04:23 Hgb 14.2 g/dL (13.6-17.9) D 01/17/23 04:23 Hct 41.0 % (39.6-49.0) 01/17/23 04:23 Plt Count 239 thou/uL (152-406) 01/17/23 04:23 PT 10.6 SECONDS (9.5-12.5) 01/16/23 06:04 INR 0.96 01/16/23 06:04 APTT 30.7 SECONDS (24.3-36.9) 01/16/23 06:04 Sodium 143 mEq/L (136-145) 01/16/23 14:25 Potassium 3.8 mEq/L (3.5-5.1) 01/16/23 14:25 BUN 17 mg/dL (7-18) 01/16/23 14:25 Creatinine 0.83 mg/dL (0.70-1.30) 01/16/23 14:25 Glucose 110 mg/dL (74-106) H 01/16/23 14:25 Phosphorus 2.7 mg/dL (2.5-4.9) 01/16/23 14:25 Magnesium 1.9 mg/dL (1.6-2.4) 01/16/23 14:25 Triglycerides 148 mg/dL (<150) 01/17/23 04:23 Cholesterol 173 mg/dL (<200) 01/17/23 04:23 HDL Cholesterol 39 mg/dL (40-60) L 01/17/23 04:23 Cholesterol/HDL Ratio 4.44 01/17/23 04:23 Home Medications: Aspirin 81 mg PO DAILY 01/16/23 Atorvastatin Calcium 40 mg PO DAILY 01/16/23 Clopidogrel Bisulfate [Plavix] 75 mg PO DAILY 01/16/23 [place]-3 Fatty Acids [[place]-3] 1,000 mg PO DAILY 01/16/23 Zinc Gluconate [Zinc] 50 mg PO DAILY 01/16/23 Diet: AHA Activity: Ad logan
--- NOTE | 2023-01-18 16:58 | EKG ---
Test Date: 2023-01-16 Test Time: 06:14:46 Spark Plug Tester: MELECIO MEASUREMENT RESULTS: Intervals: Rate: 54 MN: 136 QRSD: 100 QT: 426 QTc: 403 [place]: P: 73 MN: 136 QRS: 78 T: 57 INTERPRETIVE STATEMENTS: Sinus bradycardia Otherwise normal ECG Compared to ECG 07/20/2007 12:38:31 No significant changes Electronically Signed On 01-18-23 16:52:34 PLASTIC WORKER by Ranjan Baez
== END 2023-01-17 13:25 | disposition home or self-care (01) ==
LOC: ER 05:04 → 4TH 10:28
PROVIDERS: ADMIT Internal Medicine Nephrology; ATTEND Internal Medicine Nephrology
DX: H81.393 Other peripheral vertigo, bilateral (principal); I67.1 Cerebral aneurysm, nonruptured; I25.10 Atherosclerotic heart disease of native coronary artery without angina pectoris; I25.2 Old myocardial infarction; F17.210 Nicotine dependence, cigarettes, uncomplicated; E78.5 Hyperlipidemia, unspecified; Z71.6 Tobacco abuse counseling; Z88.5 Allergy status to narcotic agent; Z86.73 Personal history of transient ischemic attack (TIA), and cerebral infarction without residual deficits
CPT/HCPCS: 93005; 85025 ×2; 80048 ×2; 36415; 83735; 84100; 85610; 80061 ×2; 85730; 84443; 81003; 83036; 84484; 84439; 83880; 70450; 70496; 70498; 70551; 96375; 96374; 99285; Q9967; J8597; J2765; J1200; J1650; J3010; J2405; J7030; G0378 ×3

== ENCOUNTER 2023-10-06 06:30 | Day surgery (SDC) | payer BC ==
[2023-10-03 15:21] LABS: Absolute Basophils 0.1 K/uL (0-0.5); Absolute Eosinophils 0.2 K/uL (0-0.5); Absolute Lymphocytes (CBC) 2.9 K/uL (0.7-4.9); Absolute Monocytes 1.3 K/uL (0.1-1.3); Absolute Neutrophil 4.8 K/uL (1.8-8.0); Basophils % 1.4 % (0-1.3); Eosinophils % 2.5 % (0-4.4); Hematocrit 44.6 % (39.6-49.0); Hemoglobin 15.1 g/dL (13.6-17.9); Lymphocytes % 31.1 % (15.3-44.8); MCH 31.3 pg (27.0-35.0); MCHC 33.7 g/dL (32.0-36.0); MCV 92.7 fL (80-100); MPV 8.8 fL (7.6-11.3); Monocytes % 13.8 % (3.3-12.3); Neutrophils % 51.2 % (41.7-73.7); Platelets 267 thou/uL (152-406); RBC Red Blood Cell Count 4.82 M/uL (4.33-5.43); Red Cell Distribution Width 13.9 % (12.1-15.2)
[2023-10-03 15:34] LABS: PT Prothrombin Time 10.8 SECONDS (9.4-12.5); PTT, Activated Partial Thromb 32.2 SECONDS (24.3-36.9); Protime INR 0.96
[2023-10-03 15:39] LABS: Anion Gap 11.1 mEq/L (5.0-15.0); Potassium 4.1 mEq/L (3.5-5.1)
--- NOTE | 2023-10-03 15:40 | RAD REPORT ---
EXAM DESCRIPTION: RAD - Chest Pa And Lat (2 Views) - 10/03/2023 3:29 pm CLINICAL HISTORY: Pre op pending abdominal angiogram COMPARISON: <Comparisons> FINDINGS: Lines: None. Lungs: No evidence of edema or pneumonia. Pleural: No significant pleural effusions or pneumothorax. Cardiac: The heart size is within normal limits. Mediastinum: Within normal limits. Bones: No acute fractures. Sternotomy Other: None IMPRESSION: No acute cardiopulmonary disease.
--- NOTE | 2023-10-05 13:12 | EKG ---
Test Date: 2023-10-03 Test Time: 15:16:29 Mechanical Maintenance Engineer: KIANA MEASUREMENT RESULTS: Intervals: Rate: 55 FL: 130 QRSD: 98 QT: 468 QTc: 447 [place]: P: 80 FL: 130 QRS: 71 T: 86 INTERPRETIVE STATEMENTS: Sinus bradycardia Incomplete right bundle branch block Nonspecific ST abnormality Abnormal ECG Compared to ECG 04/04/2023 14:03:42 ST (T wave) deviation now present Sinus rhythm no longer present Electronically Signed On 10-05-23 13:06:24 CDT by Ranjan Baez
[2023-10-06] MEDS ORDERED: NA CHLORIDE 0.9% 500 ML ONE (06:52)
[2023-10-06] MEDS ORDERED: LIDOCAINE 1% 20 ML MDV ONE (07:04)
[2023-10-06] MEDS ORDERED: ATROPINE SULF 1 MG/10 ML SYR IV ONE (07:04)
[2023-10-06] MEDS ORDERED: HEPA 1000U/500MLS 2,000 UNIT/1,000 ML BAG IV ONE (07:04)
[2023-10-06] MEDS ORDERED: MIDAZOLAM HCL 2 MG/2 ML INJ ONE (07:20)
[2023-10-06] MEDS ORDERED: VERAPAMIL HCL 10 MG/4 ML VIAL IV ONE (07:20)
[2023-10-06] MEDS ORDERED: FENTANYL CITR 100 MCG/2 ML ONE (07:20)
[2023-10-06] MEDS ORDERED: HEPARIN 5000 UNIT/ML 1 ML VIAL ONE (07:20)
[2023-10-06] MEDS ORDERED: HEPARIN 10,000 UNIT/10 ML VIAL IV ONE (07:48)
[2023-10-06 08:22] VITALS: TEMP 97.6
[2023-10-06 14:52] VITALS: BP 133/76; O2SAT 98
--- NOTE | 2023-10-06 16:32 | OP ---
Date of Procedure: 10/06/2023 Surgeon: PHAM ALONSO Procedure Performed: Peripheral angiogram with runoff. Indication: Peripheral vascular disease. Access: 1.Right radial artery 6-Australian closed with TR band. 2.Right common femoral artery 6-Australian closed with manual pressure. Complications: None. Bleeding: Less than 50 mL. Anesthesia: Total sedation time was 1 hour. Description Of Procedure: After risks, benefits, alternatives were explained, patient agreed to the procedure and signed informed consent. The patient was brought into cardiac catheterization laborato ry, prepped and draped in the usual sterile fashion. Then, I accessed the right radial artery using pediatric micropuncture kit, placed a 6-Australian Slender sheath and took a long 4-Australian pigtail cathet er into the distal aorta and performed distal aortogram with runoff and then I removed the catheter a nd the sheath, placed TR band with hemostasis. Then, I accessed the right common femoral artery, the n attempted to do balloon angioplasty of the left external iliac artery, however, I could not cross w ith the wire at that moment and it appeared to be heavily calcified lesion. So I decided to abort th e procedure and plan for staged balloon angioplasty and stent placement and likely shockwave with lit hotripsy of the external iliac on the left plus below the knee. Then I removed the groin sheath and manual pressure was used for closure with good hemostasis. Findings: 1.Distal aorta is widely patent. 2.Right common iliac has 30% stenosis. The internal iliac is patent. External iliac is patent and the common femoral is patent. Profunda is patent on the right and the SFA proximally has 30% to 40%, and distally has focal 60% to 70%, and the popliteal is normal but below the knee, the anterior tibi al is occluded proximally and the peroneal and posterior tibial have mild diffuse disease. 3.Left lower extremity. The left common iliac and internal iliac are patent, but the external iliac , there is heavily calcified severe stenosis above 90% and then the common femoral appears to be with out significant disease. The profunda is patent and the SFA has a long stent from the ostium all the way to the popliteal artery that is patent with 30% to 40% ISR. Triple vessel below the knee are wi th moderate diffuse disease. Conclusions: Severe bilateral peripheral vascular disease. Failed attempt balloon angioplasty of th e left external iliac. Plan: A staged balloon angioplasty shockwave lithotripsy and stent placement of the left external il iac at [place] and we will also try to work on the knee on the gsriz-iod-okrt arteries, if the amanda ac artery angioplasty is successful, and then at a later time, we will work on the right leg as well. /ANTOINETTE Voice ID: [id number] Report ID: [id number]
== END 2023-10-06 14:53 | disposition home or self-care (01) ==
LOC: CCL 06:30
PROVIDERS: ATTEND Internal Medicine
DX: I70.223 Atherosclerosis of native arteries of extremities with rest pain, bilateral legs (principal); I70.92 Chronic total occlusion of artery of the extremities; T82.856A Stenosis of peripheral vascular stent, initial encounter; I25.10 Atherosclerotic heart disease of native coronary artery without angina pectoris; I65.23 Occlusion and stenosis of bilateral carotid arteries; I10 Essential (primary) hypertension; E78.5 Hyperlipidemia, unspecified; F17.210 Nicotine dependence, cigarettes, uncomplicated; Z95.1 Presence of aortocoronary bypass graft; Z79.82 Long term (current) use of aspirin; Z79.02 Long term (current) use of antithrombotics/antiplatelets; Z79.899 Other long term (current) drug therapy; Z88.5 Allergy status to narcotic agent; Z82.49 Family history of ischemic heart disease and other diseases of the circulatory system
CPT/HCPCS: 93005; 85025; 80048; 36415; 85610; 85347 ×4; 85730; 71046; 36200; 75630; 37220; 76937; C1893; C1769; J1644; J2001; J2250; J3010; J7040; 37222; 99152; 99153; J0461

== ENCOUNTER 2024-03-28 10:48 | Emergency (ER) | payer BC ==
--- NOTE | 2024-03-28 12:02 | RAD REPORT ---
EXAMINATION: XR RIGHT SHOUDLER CLINICAL INDICATION: Male, 64 years old. PAIN RIGHT TECHNIQUE:Two view radiograph of the right shoulder were obtained. COMPARISON: No prior exam. FINDINGS: No acute osseous abnormality detected. Up to moderate AC joint degenerative changes. [place] umeral joint is well aligned. No focal suspicious osseous lesion. IMPRESSION: No acute osseous abnormalities. Up to moderate AC joint degenerative changes.
--- NOTE | 2024-03-28 12:33 | ER ---
Nurse's Notes [facility] Name: Casper Elena Age: 64 yrs Sex: Male : 1960 Arrival Date: 03/28/2024 Time: 10:48 Bed 11 Private MD: Diagnosis: Pain in right shoulder Presentation: 03/28 10:56 Chief complaint: Patient states: Mechanical fall 1.5 weeks ago, continued pain when jl7 moving arm up. Coronavirus screen: At this time, the client does not indicate any symptoms associated with coronavirus-19. Ebola Screen: No symptoms or risks identified at this time. Initial Sepsis Screen: Does the patient meet any 2 criteria? No. Patient's initial sepsis screen is negative. Does the patient have a suspected source of infection? No. Patient's initial sepsis screen is negative. Risk Assessment: Do you want to hurt yourself or someone else? Patient reports no desire to harm self or others. Onset of symptoms was March 18, 2024. 10:56 Method Of Arrival: Ambulatory [facility] 10:56 Acuity: ANDREW 4 jl7 Triage Assessment: 10:57 General: Appears in no apparent distress. uncomfortable, Behavior is calm, cooperative, jl7 appropriate for age. Pain: Complains of pain in anterior aspect of right shoulder Pain currently is 3 out of 10 on a pain scale. at worst was 6 out of 10 on a pain scale. Musculoskeletal: Swelling absent. Injury Description: pain to right arm. Historical: - Allergies: 10:57 Codeine; jl7 - Home Meds: 10:57 Plavix Oral [Active]; jl7 - PMHx: 10:57 CVA; Myocardial infarction; jl7 - PSHx: 10:57 cardiac bypass; heart stent; jl7 - Immunization history:: Adult Immunizations unknown. - Infectious Disease History:: Denies. - Social history:: Smoking status: Patient reports the use of cigarette tobacco products. - Family history:: not pertinent. Vital Signs: 10:56 BP 148 / 93; Pulse 89; Resp 17; Temp 97.1; Pulse Ox 97% ; Weight 74.84 kg; Height 5 ft. jl7 9 in. ; Pain 3/10; 12:58 BP 147 / 89; Pulse 84; Resp 15; Pulse Ox 97% ; jl7 10:56 Body Mass Index 24.37 (74.84 kg, 175.26 cm) jl7 10:56 Pain Scale: Adult jl7 ED Course: 10:51 Patient arrived in ED. al6 10:51 Hero Chaudhary MD is Attending Physician. rt 10:57 Triage completed. jl7 10:57 Arm band placed on right wrist. jl7 11:35 Shoulder Right (2 View) XRAY In Process Unspecified. EDMS 12:57 Jamee Carr RN is Primary Nurse. jl7 Administered Medications: 12:57 Drug: Ketorolac IM 30 mg IM once Route: IM; Site: right deltoid; jl7 13:00 Follow up: Response: Medication administered at discharge. jl7 Outcome: 12:32 Discharge ordered by . rt 12:58 Patient left the ED. jl7 Signatures: Dispatcher [employer] Jamee Richard RN RN jl7 Hero Chaudhary MD MD rt Erinn Bernstein al6
--- NOTE | 2024-03-28 12:33 | EDPHYS ---
Physician Documentation [facility] Name: Casper Elena Age: 64 yrs Sex: Male : 1960 Arrival Date: 03/28/2024 Time: 10:48 Bed 11 Private MD: ED Physician Hero Chaudhary HPI: 03/28 10:58 This 64 yrs old Male presents to ER via Ambulatory with complaints of Shoulder Injury. rt 10:58 Patient presents to the ED about 1 week following a shoulder injury. Patient states rt that he fell, when on his outstretched hand. Denies any pain to the wrist, elbow, wrist to the arm. Reports pain anteriorly on his shoulder. Denies other acute complaints at this time, symptoms are aching nature, nonradiating, mild in severity, no other aggravating or alleviating factors.. Historical: - Allergies: 10:57 Codeine; jl7 - Home Meds: 10:57 Plavix Oral [Active]; jl7 - PMHx: 10:57 CVA; Myocardial infarction; jl7 - PSHx: 10:57 cardiac bypass; heart stent; jl7 - Immunization history:: Adult Immunizations unknown. - Infectious Disease History:: Denies. - Social history:: Smoking status: Patient reports the use of cigarette tobacco products. - Family history:: not pertinent. ROS: 10:58 Constitutional: Negative for fever, chills, and weight loss, Skin: Negative for injury, rt rash, and discoloration, Neuro: Negative for headache, weakness, numbness, tingling, and seizure, 10:58 MS/extremity: Positive for pain, Negative for deformity, Exam: 10:58 Constitutional: This is a well developed, well nourished patient who is awake, alert, rt and in no acute distress. Head/Face: Normocephalic, atraumatic. Neck: Trachea midline, no thyromegaly or masses palpated, and no cervical lymphadenopathy. Supple, full range of motion without nuchal rigidity, or vertebral point tenderness. No Meningismus. Skin: Warm, dry with normal turgor. Normal color with no rashes, no lesions, and no evidence of cellulitis. Neuro: Awake and alert, GCS 15, oriented to person, place, time, and situation. Cranial nerves II-XII grossly intact. Motor strength 5/5 in all extremities. Sensory grossly intact. Cerebellar exam normal. Normal gait. Psych: Awake, alert, with orientation to person, place and time. Behavior, mood, and affect are within normal limits. 10:58 Musculoskeletal/extremity: No deformities over right shoulder, mild tenderness over bicep tendon insertion, full range of motion, no other focal areas of tenderness, pulses, motor, sensation intact. Vital Signs: 10:56 BP 148 / 93; Pulse 89; Resp 17; Temp 97.1; Pulse Ox 97% ; Weight 74.84 kg; Height 5 ft. jl7 9 in. ; Pain 3/10; 12:58 BP 147 / 89; Pulse 84; Resp 15; Pulse Ox 97% ; jl7 10:56 Body Mass Index 24.37 (74.84 kg, 175.26 cm) jl7 10:56 Pain Scale: Adult jl7 MDM: 10:58 Medical Screening Exam initiated rt 13:09 Differential diagnosis: Fracture, dislocation, AC separation, labrum tear, rotator cuff rt tear. Data reviewed: vital signs, nurses notes, radiologic studies. I considered the following discharge prescriptions or medication management in the emergency department Medications were administered in the Emergency Department. See MAR. Independent interpretation of the following test(s) in the Emergency Department X-Ray: My interpretation is No fracture seen on interpretation of x-ray images. Counseling: I had a detailed discussion with the patient and/or guardian regarding the historical points, exam findings, and any diagnostic results supporting the discharge/admit diagnosis, radiology results, the need for outpatient follow up. 03/28 10:58 Order name: Shoulder Right (2 View) XRAY; Complete Time: 12:04 rt Administered Medications: 12:57 Drug: Ketorolac IM 30 mg IM once Route: IM; Site: right deltoid; jl7 13:00 Follow up: Response: Medication administered at discharge. jl7 Disposition Summary: 03/28/24 12:32 Discharge Ordered Notes: Location: Home rt Problem: new rt Symptoms: have improved rt Condition: Stable rt Diagnosis - Pain in right shoulder rt Followup: rt - With: Private Physician - When: 2 - 3 days - Reason: Discharge Instructions: - Discharge Summary Sheet rt - Shoulder Pain rt Forms: - Medication Reconciliation Form rt - Antibiotic Education rt - Prescription Opioid Use rt - Patient Portal Instructions rt - Leadership Thank You Letter rt Signatures: Dispatcher [employer] Jamee Richard RN RN jl7 Hero Chaudhary MD MD rt
[2024-03-28] MEDS ORDERED: KETOROLAC 30 MG/ML INJ ONE (12:44)
[2024-03-28 19:20] VITALS: TEMP 97.1; O2SAT 97
[2024-03-28 19:21] VITALS: BP 147/89
== END 2024-03-28 12:58 | disposition home or self-care (01) ==
LOC: ER 10:48
DX: M25.511 Pain in right shoulder (principal)
CPT/HCPCS: 96372; 99283